=== PATIENT | male | born 1930 | race Caucasian/White ===

== ENCOUNTER 2018-09-20 11:19 | Outpatient (CLI) | payer MEDICARE, OTHER ==
[2018-09-20 18:14] LABS: INR 2.6 (0.8-1.2); PT - PROTHROMBIN TIME 28.8 secs (9.9-12.6)
== END 2018-09-20 11:20 | disposition home or self-care (01) ==
LOC: LAB.F 11:19
DX: Z51.81 Encounter for therapeutic drug level monitoring (principal); Z79.01 Long term (current) use of anticoagulants
CPT/HCPCS: 36415; 85610

== ENCOUNTER 2018-10-01 09:50 | Outpatient (CLI) | payer MEDICARE, OTHER ==
[2018-10-01 17:51] LABS: BASOPHILS % (AUTO) 0.3 %; EOSINOPHILS # (AUTO) 0.1 10^3/uL (0.0-0.7); EOSINOPHILS % (AUTO) 1.1 %; HGB - HEMOGLOBIN 10.8 g/dL (14.0-18.0); LYMPHOCYTES # (AUTO) 0.4 10^3/uL (1.5-3.5); LYMPHOCYTES % (AUTO) 4.2 %; MEAN CORPUSCULAR HEMOGLOBIN 32.5 pg (27.0-31.0); MEAN CORPUSCULAR HGB CONC 33.6 g/dL (32.0-36.0); MEAN CORPUSCULAR VOLUME 96.6 fL (80.0-94.0); MEAN PLATELET VOLUME 8.1 fL (7.4-11.4); MONOCYTES # (AUTO) 1.1 10^3/uL (0.0-1.0); MONOCYTES % (AUTO) 12.1 %; NEUTROPHILS # (AUTO) 7.2 10^3/uL (1.5-6.6); NEUTROPHILS % (AUTO) 82.3 %; PLT - PLATELET COUNT 229 10^3/uL (130-450); RED BLOOD COUNT 3.32 10^6/uL (4.70-6.10); RED CELL DISTRIBUTION WIDTH 14.7 % (12.0-15.0); WHITE BLOOD COUNT 8.7 x10^3/uL (4.8-10.8)
[2018-10-01 18:00] LABS: PT - PROTHROMBIN TIME 61.1 secs (9.9-12.6)
[2018-10-01 18:14] LABS: CREATININE,URINE 161.4 mg/dL; MICROALBUM/CREATININE RATIO,UR 11.8 ug/mg (<30.0); MICROALBUMIN,URINE 1.9 mg/dL (0-300.0)
[2018-10-01 18:23] LABS: % IRON SATURATION 7 % (20-50); ALBUMIN 3.9 g/dL (3.2-5.5); ALBUMIN/GLOBULIN RATIO 1.6 (1.0-2.2); ALKALINE PHOSPHATASE 90 IU/L (42-121); ALT ALANINE AMINOTRANSFERASE 17 IU/L (10-60); AST ASPARTATE AMINOTRANSFERASE 16 IU/L (10-42); BILIRUBIN,TOTAL 0.6 mg/dL (0.2-1.0); BUN - BLOOD UREA NITROGEN 45 mg/dL (6-20); CALCIUM 8.7 mg/dL (8.5-10.3); CARBON DIOXIDE - CO2 23 mmol/L (21-32); CHLORIDE 106 mmol/L (101-111); CHOL/HDL RATIO 2.9 (<5.0); CHOLESTEROL 122 mg/dL; CREATININE 1.3 mg/dL (0.6-1.2); FERRITIN 116.7 ng/mL (23.9-336.2); GFR - MDRD 52 (>89); GLUCOSE 160 mg/dL (70-100); HDL CHOLESTEROL 42 mg/dL; IRON 17 ug/dL (45-182); LDL CHOLESTEROL,CALCULATED 63 mg/dL; LDL/HDL RATIO 1.5 (<3.6); SODIUM 137 mmol/L (135-145); TOTAL IRON BINDING CAPACITY 248 ug/dL (250-450); TOTAL PROTEIN 6.3 g/dL (6.7-8.2); TRANSFERRIN 177 mg/dL (180-329); VLDL CHOLESTEROL 17 mg/dL
[2018-10-01 18:35] LABS: INR 5.5 (0.8-1.2)
[2018-10-01 18:48] LABS: HB2 TOTAL 10.9 g/dL; HEMOGLOBIN A1C 0.41 g/dL; HEMOGLOBIN A1C % 5.6 % (4.6-6.2)
== END 2018-10-01 09:51 | disposition home or self-care (01) ==
LOC: LAB.F 09:50
PROVIDERS: ATTEND Internal Medicine
DX: E11.9 Type 2 diabetes mellitus without complications (principal); E78.5 Hyperlipidemia, unspecified; F41.1 Generalized anxiety disorder; D50.9 Iron deficiency anemia, unspecified; Z79.01 Long term (current) use of anticoagulants; Z95.2 Presence of prosthetic heart valve
CPT/HCPCS: 36415; 80053; 80061; 82043; 82570; 82728; 83036; 83540; 83721; 84443; 84466; 85025; 85610

== ENCOUNTER 2018-10-02 08:20 | Outpatient (CLI) | payer MEDICARE, OTHER | END 2018-10-02 08:21 | disposition home or self-care (01) | LOC: LAB.F 08:20 | PROVIDERS: ATTEND General Practice | DX: Z79.01 Long term (current) use of anticoagulants (principal); Z95.2 Presence of prosthetic heart valve | CPT/HCPCS: 36415; 85610 ==

== ENCOUNTER 2018-10-07 10:21 | Outpatient (CLI) | payer MEDICARE, OTHER | END 2018-10-07 10:22 | disposition home or self-care (01) | LOC: LAB.F 10:21 | PROVIDERS: ATTEND General Practice | DX: Z51.81 Encounter for therapeutic drug level monitoring (principal); Z79.01 Long term (current) use of anticoagulants | CPT/HCPCS: 85610 ==

== ENCOUNTER 2018-10-09 09:22 | Outpatient (CLI) | payer MEDICARE, OTHER ==
[2018-10-09 18:25] LABS: INR 2.3 (0.8-1.2); PT - PROTHROMBIN TIME 25.9 secs (9.9-12.6)
[2018-10-09 18:40] LABS: % IRON SATURATION 11 % (20-50); IRON 21 ug/dL (45-182); TOTAL IRON BINDING CAPACITY 190 ug/dL (250-450); TRANSFERRIN 136 mg/dL (180-329)
[2018-10-09 19:58] LABS: ABSOLUTE RETICS # AUTO 0.033 10^6/uL (0.020-0.110); BASOPHILS % (AUTO) 0.4 %; EOSINOPHILS # (AUTO) 0.2 10^3/uL (0.0-0.7); EOSINOPHILS % (AUTO) 2.5 %; HGB - HEMOGLOBIN 8.5 g/dL (14.0-18.0); LYMPHOCYTES # (AUTO) 0.3 10^3/uL (1.5-3.5); LYMPHOCYTES % (AUTO) 3.7 %; MEAN CORPUSCULAR HEMOGLOBIN 31.6 pg (27.0-31.0); MEAN CORPUSCULAR VOLUME 95.8 fL (80.0-94.0); MEAN PLATELET VOLUME 7.2 fL (7.4-11.4); MEAN RETIC VALUE 112.7; MONOCYTES # (AUTO) 0.7 10^3/uL (0.0-1.0); NEUTROPHILS # (AUTO) 6.5 10^3/uL (1.5-6.6); NEUTROPHILS % (AUTO) 84.4 %; PLT - PLATELET COUNT 253 10^3/uL (130-450); RED BLOOD COUNT 2.69 10^6/uL (4.70-6.10); RED CELL DISTRIBUTION WIDTH 14.7 % (12.0-15.0); WHITE BLOOD COUNT 7.7 x10^3/uL (4.8-10.8)
== END 2018-10-09 09:23 | disposition home or self-care (01) ==
LOC: LAB.F 09:22
PROVIDERS: ATTEND General Practice
DX: Z51.81 Encounter for therapeutic drug level monitoring (principal); Z79.01 Long term (current) use of anticoagulants; D50.9 Iron deficiency anemia, unspecified; R06.02 Shortness of breath; R07.9 Chest pain, unspecified
CPT/HCPCS: 36415; 82728; 83540; 84466; 84484; 85025; 85044; 85379; 85610

== ENCOUNTER 2018-10-11 08:00 | Outpatient (CLI) | payer MEDICARE, OTHER | END 2018-10-11 22:59 | disposition home or self-care (01) | LOC: LAB.F 08:00 | PROVIDERS: ATTEND Internal Medicine | DX: Z51.81 Encounter for therapeutic drug level monitoring (principal); Z79.01 Long term (current) use of anticoagulants; Z95.2 Presence of prosthetic heart valve | CPT/HCPCS: 85610 ==

== ENCOUNTER 2018-11-01 11:04 | Outpatient (CLI) | payer MEDICARE, OTHER | END 2018-11-01 11:05 | disposition home or self-care (01) | LOC: LAB.F 11:04 | PROVIDERS: ATTEND Internal Medicine | DX: I48.1 Persistent atrial fibrillation (principal); Z79.01 Long term (current) use of anticoagulants | CPT/HCPCS: 85610 ==

== ENCOUNTER 2018-11-29 15:12 | Outpatient (CLI) | payer MEDICARE, OTHER | END 2018-11-29 15:13 | disposition home or self-care (01) | LOC: LAB.F 15:12 | PROVIDERS: ATTEND Internal Medicine | DX: I48.1 Persistent atrial fibrillation (principal); Z79.01 Long term (current) use of anticoagulants | CPT/HCPCS: 85610 ==

== ENCOUNTER 2018-12-05 13:12 | Outpatient (CLI) | payer MEDICARE, OTHER ==
[2018-12-05 17:26] LABS: HGB - HEMOGLOBIN 11.5 g/dL (14.0-18.0); MEAN CORPUSCULAR HEMOGLOBIN 30.2 pg (27.0-31.0); MEAN CORPUSCULAR HGB CONC 32.6 g/dL (32.0-36.0); MEAN CORPUSCULAR VOLUME 92.5 fL (80.0-94.0); MEAN PLATELET VOLUME 8.3 fL (7.4-11.4); RED BLOOD COUNT 3.81 10^6/uL (4.70-6.10); RED CELL DISTRIBUTION WIDTH 14.9 % (12.0-15.0); WHITE BLOOD COUNT 5.7 x10^3/uL (4.8-10.8)
== END 2018-12-05 13:13 | disposition home or self-care (01) ==
LOC: LAB.F 13:12
PROVIDERS: ATTEND Internal Medicine
DX: D50.9 Iron deficiency anemia, unspecified (principal); Z79.01 Long term (current) use of anticoagulants; I48.1 Persistent atrial fibrillation
CPT/HCPCS: 36415; 82728; 85027; 85610

== ENCOUNTER 2018-12-16 10:18 | Outpatient (CLI) | payer MEDICARE, OTHER | END 2018-12-16 10:19 | disposition home or self-care (01) | LOC: LAB.F 10:18 | PROVIDERS: ATTEND Internal Medicine | DX: I48.1 Persistent atrial fibrillation (principal); Z79.01 Long term (current) use of anticoagulants | CPT/HCPCS: 85610 ==

== ENCOUNTER 2018-12-23 15:07 | Outpatient (CLI) | payer MEDICARE, OTHER | END 2018-12-23 15:08 | disposition home or self-care (01) | LOC: LAB.F 15:07 | PROVIDERS: ATTEND Internal Medicine | DX: I48.1 Persistent atrial fibrillation (principal); Z79.01 Long term (current) use of anticoagulants | CPT/HCPCS: 85610 ==

== ENCOUNTER 2019-01-08 12:02 | Outpatient (CLI) | payer MEDICARE, OTHER ==
--- NOTE | 2019-01-10 06:33 | MRI Report ---
Reason: SPINAL STENOSIS,LUMBAR REGION WITH NEUROGENIC STALIN Procedure Date: 01/08/2019 Accession Number: [id number] / [id number] Procedure: MRI - Lumbar Spine W/O CPT Code: FULL RESULT: EXAM: MRI LUMBAR SPINE WITHOUT CONTRAST EXAM DATE: 01/08/2019 01:10 PM. CLINICAL HISTORY: Neurogenic claudication. COMPARISON: None. TECHNIQUE: Multiplanar, multisequence T1-weighted and fluid-sensitive sequences of the lumbar spine from T11 to S1 without contrast. Other: None. FINDINGS: Spinal Canal: The conus terminates at L1. The conus medullaris is unremarkable. Alignment: On coronal images, right lateral subluxation at L2-L3 measures 6 mm. Focal levoscoliosis is noted at L3-L4 due to right-sided disk height loss. Retrolisthesis at L2-L3 measures 2-3 mm. Grade 1 anterolisthesis at L4-L5 also measures 2-3 mm. The normal lumbar lordosis is straightened. Bone Marrow: Five [id number] lumbar vertebral bodies are assumed. Mixed type Modic endplate changes are present at L2-L3, L3-L4, and L4-L5. Disk Levels/Facets: T11-T12: On sagittal images, disk height loss is present without spinal canal or foraminal stenosis. T12-L1: Mild bilateral facet arthropathy is present without spinal canal or foraminal stenosis. L1-L2: A disk bulge with facet arthropathy and ligamentum flavum infolding result in moderate spinal canal stenosis. Fluid is present in the bilateral facet joints. There is moderate bilateral foraminal narrowing. L2-L3: A disk bulge with facet arthropathy and ligamentum flavum infolding result in moderate spinal canal stenosis. There is severe right and moderate left foraminal narrowing. L3-L4: A disk bulge with facet arthropathy and ligamentum flavum infolding result in mild spinal canal stenosis. There is severe right and moderate left foraminal narrowing. L4-L5: A disk bulge with facet arthropathy and ligamentum flavum infolding result in moderate spinal canal stenosis. There is severe bilateral foraminal narrowing. L5-S1: A disk bulge and bilateral facet arthropathy result in mild left foraminal narrowing. The spinal canal and right foramen are patent. Musculature: A moderate sized area of mixed signal abnormality is present in the left iliopsoas muscle measuring 7.0 x 2.8 cm (image 4, series 801), likely representing an intramuscular hematoma. A second small similar finding is seen anteriorly in the muscle measuring 1.4 cm (image 7, series 801). Other: There is moderate diffuse fatty atrophy of the posterior paraspinal muscles. Mild edema in the lower paraspinal muscles may be related to facet arthropathy. IMPRESSION: 1. Moderate to severe multilevel degenerative changes result in moderate spinal canal stenosis at L1-L2, L2-L3, and L4-L5. 2. There is severe right foraminal narrowing at L2-L3 and L3-L4. Severe bilateral foraminal narrowing is present at L4-L5. 3. Two areas of signal abnormality are noted in the left iliopsoas muscle measuring up to 7.0 cm, suspicious for intramuscular hematomas. Comment: The following findings are so common in adults without low back pain that while we report their presence, they must be interpreted with caution and in the context of the clinical situation. (Reference Anuvik et al, Spine 2001) Prevalence of findings in patients without low back pain: Disk degeneration (any evidence): 92% Disk desiccation/T2 signal loss: 83% Disk height loss: 56% Disk bulge: 64% Disk protrusion: 32% Annular tear/high intensity zone: 38% RADIA ADDENDUM: 01/10/19 21:59 The findings were relayed to Dr. Downs at 0942 hours on 01/10/2019.
== END 2019-01-08 12:03 | disposition home or self-care (01) ==
LOC: DI 12:02
PROVIDERS: ATTEND Orthopaedic Surgery
DX: M48.062 Spinal stenosis, lumbar region with neurogenic claudication (principal); M51.26 Other intervertebral disc displacement, lumbar region
CPT/HCPCS: 72148

== ENCOUNTER 2019-01-10 11:58 | Outpatient (CLI) | payer MEDICARE, OTHER ==
[2019-01-10 17:50] LABS: HGB - HEMOGLOBIN 8.1 g/dL (14.0-18.0); MEAN CORPUSCULAR HEMOGLOBIN 29.1 pg (27.0-31.0); MEAN CORPUSCULAR HGB CONC 30.1 g/dL (32.0-36.0); MEAN CORPUSCULAR VOLUME 96.8 fL (80.0-94.0); MEAN PLATELET VOLUME 9.9 fL (7.4-11.4); RED BLOOD COUNT 2.78 10^6/uL (4.70-6.10); RED CELL DISTRIBUTION WIDTH 13.9 % (12.0-15.0); WHITE BLOOD COUNT 8.2 x10^3/uL (4.8-10.8)
== END 2019-01-10 11:59 | disposition home or self-care (01) ==
LOC: LAB.S 11:58
PROVIDERS: ATTEND Internal Medicine
DX: I48.1 Persistent atrial fibrillation (principal); Z79.01 Long term (current) use of anticoagulants; D50.9 Iron deficiency anemia, unspecified
CPT/HCPCS: 36415; 82728; 85027; 85610

== ENCOUNTER 2019-01-10 16:19 | Emergency (ER) | payer MEDICARE, OTHER ==
[2019-01-10] MEDS ORDERED: PHYTONADIONE 10 MG/ML AMP PO ONE (16:49)
[2019-01-10] MEDS ORDERED: CHERRY SYRUP 10 ML UDC PO ONE (16:49)
--- NOTE | 2019-01-10 16:50 | ED Physician Documentation ---
History of Present Illness - Stated complaint Stated Complaint: INR RESULTS HIGH, MRI ABNORMAL - Chief complaint Chief Complaint: General - History obtained from History obtained from: Patient, Family - History of Present Illness Timing: Today (88-year-old gentleman with remote mechanical aortic valve. Has been having problems with his INR recently related to a hip injury, subsequently diagnosed with an iliopsoas hematoma and in there somewhere he took a few oxycodone. Today his INR was 8 and he was for further evaluation and treatment. Other than ongoing hip pain has no complaints. No melena or dark or tarry stools.) Review of Systems Constitutional: denies: Fever, Chills, Fatigue Cardiac: denies: Chest pain / pressure, Palpitations Respiratory: denies: Dyspnea, Cough GI: denies: Abdominal Pain PD PAST MEDICAL HISTORY - Past Medical History Cardiovascular: High cholesterol, Valve disorder, Other Endocrine/Autoimmune: Type 2 diabetes Psych: Depression, Anxiety - Past Surgical History Ortho: Hip replacement Cardiovascular: Other - Present Medications Home Medications: Ambulatory Orders Medication Instructions Recorded Confirmed ALPRAZolam [Alprazolam] 2 mg PO DAILY 11/13/18 11/13/18 Escitalopram Oxalate [Lexapro] 20 mg PO DAILY 11/13/18 11/13/18 Fexofenadine HCl [Nikki Allergy] 180 mg PO DAILY 11/13/18 11/13/18 Fluticasone 44 Mcg [Flovent] 2 puffs PO DAILY 11/13/18 11/13/18 Fluticasone [Flonase] 2 sprays JUAN DAILY 11/13/18 11/13/18 Memantine HCl [Namenda] 10 mg PO DAILY 11/13/18 11/13/18 Simvastatin 10 mg PO DAILY 11/13/18 11/13/18 Warfarin [Coumadin] 5 - 7.5 mg PO DAILY 11/13/18 11/13/18 Zolpidem Tartrate [Ambien] 10 mg PO DAILY 11/13/18 11/13/18 metFORMIN [Glucophage] 1,000 mg PO DAILY 11/13/18 11/13/18 quiNINE [Qualaquin] 300 mg PO DAILY 11/13/18 11/13/18 Oxycodone HCl/Acetaminophen 1 - 2 each PO Q6H PRN #14 tablet 01/10/19 [Percocet 5-325 mg Tablet] - Allergies Allergies/Adverse Reactions: Allergies Allergy/AdvReac Type Severity Reaction Status Date / Time Penicillins Allergy Unknown Verified 01/10/19 16:26 - Social History Smoking Status: Former smoker PD ED PE NORMAL - Vitals Vital signs reviewed: Yes - General General: Alert and oriented X 3, No acute distress - HEENT HEENT: PERRL, EOMI - Neuro Neuro: Alert and oriented X 3, Normal speech - Psych Psych: Normal mood, Normal affect Results - Vitals Vitals: Vital Signs - 24 hr 01/10/19 01/10/19 01/10/19 16:24 18:46 18:55 Temperature 36.0 C L 37.3 C 37.4 C Heart Rate 89 78 77 Respiratory 16 16 16 Rate Blood Pressure 172/57 H 134/60 H 138/70 H O2 Saturation 98 01/10/19 01/10/19 19:05 19:23 Temperature 37.5 C 37.3 C Heart Rate 77 80 Respiratory 16 16 Rate Blood Pressure 146/69 H 145/76 H O2 Saturation Oxygen O2 Source Room air - Labs Labs: Laboratory Tests 01/10/19 01/10/19 01/10/19 16:58 16:58 16:58 Hgb 8.5 L Hct 27.1 L PT 83.4 H INR 7.5 H* Whole Blood INR Blood Type Blood Type Recheck A NEGATIVE 01/10/19 01/10/19 17:30 20:00 Hgb Hct PT INR Whole Blood INR 4.3 H Blood Type A NEGATIVE Blood Type Recheck PD MEDICAL DECISION MAKING - ED course Complexity details: reviewed old records (MRI results from earlier this week and prior labs) ED course: 88-year-old gentleman with uncontrolled INR and slight drop in his H&H due to an iliopsoas hematoma. He was given a small dose of vitamin K and 1 unit of FFP here given the evidence of mild active bleeding and repeat INR was much better. Advised to stop Coumadin until Sunday and have his INR rechecked then. Departure - Departure Disposition: 01 Home, Self Care Clinical Impression: Supratherapeutic INR Iliopsoas muscle hematoma Qualifiers: Encounter type: initial encounter Laterality: left Qualified Code(s): S70.12XA - Contusion of left thigh, initial encounter Condition: Good Record reviewed to determine appropriate education?: Yes Health Concerns: pain, high inr Plan of Treatment: Hold Coumadin until Sunday, have your INR rechecked on Sunday prior to restarting it. Try to maintain in your goal range after that, due to the pain medication he may need a lower dose than previously. Return if worse. Do not drink or drive while taking narcotic pain medication. Note that many narcotic pain relievers also contain Tylenol/acetaminophen. Please ensure that your total dose of acetaminophen from all sources does not exceed 3 g (3000 mg) per day. You may get constipated while on this medication. Take a stool softener such as Colace twice a day while you are on it. Also add an eott-sij-gvldgfj laxative such as senna or MiraLAX on any day that you do not have a bowel movement. If you received a narcotic pain medication or sedative while in the emergency department, do not drive for the next 24 hours. Care Goals: pain control, Assessment: as above Prescriptions: Oxycodone HCl/Acetaminophen [Percocet 5-325 mg Tablet] 1 - 2 each PO Q6H PRN #14 tablet PRN Reason: pain Comments: Hold Coumadin until Sunday, have your INR rechecked on Sunday prior to restarting it. Try to maintain in your goal range after that, due to the pain medication he may need a lower dose than previously. Return if worse. Do not drink or drive while taking narcotic pain medication. Note that many narcotic pain relievers also contain Tylenol/acetaminophen. Please ensure that your total dose of acetaminophen from all sources does not exceed 3 g (3000 mg) per day. You may get constipated while on this medication. Take a stool softener such as Colace twice a day while you are on it. Also add an kypy-llb-jydjkez laxative such as senna or MiraLAX on any day that you do not have a bowel movement. If you received a narcotic pain medication or sedative while in the emergency department, do not drive for the next 24 hours.
[2019-01-10 17:03] LABS: HGB - HEMOGLOBIN 8.5 g/dL (14.0-18.0)
[2019-01-10] MEDS ORDERED: oxyCODONE 5 MG TABLET PO STA (17:10)
[2019-01-10 17:17] LABS: PT - PROTHROMBIN TIME 83.4 secs (9.9-12.6)
[2019-01-10 17:31] LABS: INR 7.5 (0.8-1.2)
[2019-01-10] MEDS ORDERED: oxyCODONE/ACET 5/325 Prepack 4 PO STA (20:07)
[2019-01-10 20:26] VITALS: BP 149/74
== END 2019-01-10 20:23 | disposition home or self-care (01) ==
LOC: ED 16:19
DX: R79.1 Abnormal coagulation profile (principal); S70.12XA Contusion of left thigh, initial encounter; X58.XXXA Exposure to other specified factors, initial encounter; I48.91 Unspecified atrial fibrillation; Z95.2 Presence of prosthetic heart valve; Z79.01 Long term (current) use of anticoagulants; D50.9 Iron deficiency anemia, unspecified; E11.9 Type 2 diabetes mellitus without complications; Z79.84 Long term (current) use of oral hypoglycemic drugs; Z87.891 Personal history of nicotine dependence
CPT/HCPCS: 36415; 36430; 82728; 85014; 85018; 85027; 85610; 86900; 86901; 99283; A9270; P9017

== ENCOUNTER 2019-01-13 10:30 | Outpatient (CLI) | payer MEDICARE, OTHER | END 2019-01-13 10:31 | disposition home or self-care (01) | LOC: LAB.S 10:30 | PROVIDERS: ATTEND Internal Medicine | DX: I48.1 Persistent atrial fibrillation (principal); Z79.01 Long term (current) use of anticoagulants | CPT/HCPCS: 85610 ==

== ENCOUNTER 2019-01-16 10:04 | Outpatient (CLI) | payer MEDICARE, OTHER | END 2019-01-16 10:05 | disposition home or self-care (01) | LOC: LAB.S 10:04 | PROVIDERS: ATTEND Internal Medicine | DX: I48.1 Persistent atrial fibrillation (principal); Z79.01 Long term (current) use of anticoagulants | CPT/HCPCS: 85610 ==

== ENCOUNTER 2019-01-22 11:07 | Outpatient (CLI) | payer MEDICARE, OTHER | END 2019-01-22 11:08 | disposition home or self-care (01) | LOC: LAB.S 11:07 | PROVIDERS: ATTEND Internal Medicine | DX: I48.1 Persistent atrial fibrillation (principal); Z79.01 Long term (current) use of anticoagulants | CPT/HCPCS: 85610 ==

== ENCOUNTER 2019-01-29 12:42 | Outpatient (CLI) | payer MEDICARE, OTHER | END 2019-01-29 12:43 | disposition home or self-care (01) | LOC: LAB.S 12:42 | PROVIDERS: ATTEND Internal Medicine | DX: I48.1 Persistent atrial fibrillation (principal); Z79.01 Long term (current) use of anticoagulants | CPT/HCPCS: 85610 ==

== ENCOUNTER 2019-02-10 | Outpatient (CLI) | payer MEDICARE, OTHER | END 2019-02-10 15:43 | disposition home or self-care (01) ==

== ENCOUNTER 2019-03-03 14:58 | Outpatient (CLI) | payer MEDICARE, OTHER | END 2019-03-03 14:59 | disposition home or self-care (01) | LOC: LAB.S 14:58 | PROVIDERS: ATTEND Internal Medicine | DX: I48.1 Persistent atrial fibrillation (principal); Z79.01 Long term (current) use of anticoagulants | CPT/HCPCS: 85610 ==

== ENCOUNTER 2019-03-11 15:17 | Outpatient (CLI) | payer MEDICARE, OTHER | END 2019-03-11 15:18 | disposition home or self-care (01) | LOC: LAB.S 15:17 | PROVIDERS: ATTEND Internal Medicine | DX: I48.1 Persistent atrial fibrillation (principal); Z79.01 Long term (current) use of anticoagulants | CPT/HCPCS: 85610 ==

== ENCOUNTER 2019-03-17 11:34 | Outpatient (CLI) | payer MEDICARE, OTHER | END 2019-03-17 11:35 | disposition home or self-care (01) | LOC: LAB.S 11:34 | PROVIDERS: ATTEND Internal Medicine | DX: I48.1 Persistent atrial fibrillation (principal); Z79.01 Long term (current) use of anticoagulants | CPT/HCPCS: 85610 ==

== ENCOUNTER 2019-03-24 14:33 | Outpatient (CLI) | payer MEDICARE, OTHER | END 2019-03-24 14:34 | disposition home or self-care (01) | LOC: LAB.S 14:33 | PROVIDERS: ATTEND Internal Medicine | DX: I48.1 Persistent atrial fibrillation (principal); Z79.01 Long term (current) use of anticoagulants | CPT/HCPCS: 85610 ==

== ENCOUNTER 2019-04-03 08:16 | Outpatient (CLI) | payer MEDICARE, OTHER | END 2019-04-03 08:17 | disposition home or self-care (01) | LOC: LAB.S 08:16 | PROVIDERS: ATTEND Internal Medicine | DX: I48.1 Persistent atrial fibrillation (principal); Z79.01 Long term (current) use of anticoagulants | CPT/HCPCS: 85610 ==

== ENCOUNTER 2019-04-03 15:04 | Outpatient (CLI) | payer MEDICARE, OTHER ==
[2019-04-03 17:11] LABS: BASOPHILS # (AUTO) 0.1 10^3/uL (0.0-0.1); BASOPHILS % (AUTO) 0.8 %; EOSINOPHILS # (AUTO) 0.3 10^3/uL (0.0-0.7); EOSINOPHILS % (AUTO) 4.5 %; HGB - HEMOGLOBIN 11.9 g/dL (14.0-18.0); LYMPHOCYTES # (AUTO) 0.6 10^3/uL (1.5-3.5); LYMPHOCYTES % (AUTO) 7.5 %; MEAN CORPUSCULAR HEMOGLOBIN 28.1 pg (27.0-31.0); MEAN CORPUSCULAR HGB CONC 30.8 g/dL (32.0-36.0); MEAN PLATELET VOLUME 10.9 fL (7.4-11.4); MONOCYTES # (AUTO) 0.7 10^3/uL (0.0-1.0); MONOCYTES % (AUTO) 9.9 %; NEUTROPHILS # (AUTO) 5.7 10^3/uL (1.5-6.6); NEUTROPHILS % (AUTO) 76.9 %; PLT - PLATELET COUNT 244 10^3/uL (130-450); RED BLOOD COUNT 4.24 10^6/uL (4.70-6.10); RED CELL DISTRIBUTION WIDTH 15.3 % (12.0-15.0); WHITE BLOOD COUNT 7.4 x10^3/uL (4.8-10.8)
[2019-04-03 17:25] LABS: ALBUMIN 4.4 g/dL (3.2-5.5); ALBUMIN/GLOBULIN RATIO 1.7 (1.0-2.2); BILIRUBIN,TOTAL 0.8 mg/dL (0.2-1.0); CALCIUM 9.1 mg/dL (8.5-10.3); CREATININE 1.3 mg/dL (0.6-1.2)
== END 2019-04-03 15:05 | disposition home or self-care (01) ==
LOC: LAB.S 15:04
PROVIDERS: ATTEND Internal Medicine
DX: R10.10 Upper abdominal pain, unspecified (principal); I48.91 Unspecified atrial fibrillation; Z79.01 Long term (current) use of anticoagulants
CPT/HCPCS: 36415; 80053; 82150; 83690; 85025; 85610

== ENCOUNTER 2019-04-08 13:10 | Outpatient (CLI) | payer MEDICARE, OTHER | END 2019-04-08 13:11 | disposition home or self-care (01) | LOC: LAB.S 13:10 | PROVIDERS: ATTEND Internal Medicine | DX: Z95.2 Presence of prosthetic heart valve (principal); Z79.01 Long term (current) use of anticoagulants | CPT/HCPCS: 85610 ==

== ENCOUNTER 2019-04-14 15:24 | Outpatient (CLI) | payer MEDICARE, OTHER | END 2019-04-14 15:25 | disposition home or self-care (01) | LOC: LAB.S 15:24 | PROVIDERS: ATTEND Internal Medicine | DX: Z95.2 Presence of prosthetic heart valve (principal); Z79.01 Long term (current) use of anticoagulants | CPT/HCPCS: 85610 ==

== ENCOUNTER 2019-04-21 12:00 | Outpatient (CLI) | payer MEDICARE, OTHER | END 2019-04-21 12:01 | disposition home or self-care (01) | LOC: LAB.S 12:00 | PROVIDERS: ATTEND Internal Medicine | DX: Z95.2 Presence of prosthetic heart valve (principal); Z79.01 Long term (current) use of anticoagulants | CPT/HCPCS: 85610 ==

== ENCOUNTER 2019-04-22 11:38 | Outpatient (CLI) | payer MEDICARE, OTHER ==
[2019-04-22 18:12] LABS: HB2 TOTAL 10.3 g/dL; HEMOGLOBIN A1C 0.4 g/dL; HEMOGLOBIN A1C % 5.7 % (4.6-6.2)
== END 2019-04-22 11:39 | disposition home or self-care (01) ==
LOC: LAB.S 11:38
PROVIDERS: ATTEND Internal Medicine
DX: E11.9 Type 2 diabetes mellitus without complications (principal)
CPT/HCPCS: 36415; 83036

== ENCOUNTER 2019-05-01 15:10 | Outpatient (CLI) | payer MEDICARE, OTHER | END 2019-05-01 15:11 | disposition home or self-care (01) | LOC: LAB.S 15:10 | PROVIDERS: ATTEND Internal Medicine | DX: Z95.2 Presence of prosthetic heart valve (principal); Z79.01 Long term (current) use of anticoagulants | CPT/HCPCS: 85610 ==

== ENCOUNTER 2019-05-08 14:43 | Outpatient (CLI) | payer MEDICARE, OTHER | END 2019-05-08 14:44 | disposition home or self-care (01) | LOC: LAB.S 14:43 | PROVIDERS: ATTEND Internal Medicine | DX: Z95.2 Presence of prosthetic heart valve (principal); Z79.01 Long term (current) use of anticoagulants | CPT/HCPCS: 85610 ==

== ENCOUNTER 2019-05-14 08:56 | Outpatient (CLI) | payer MEDICARE, OTHER | END 2019-05-14 08:57 | disposition home or self-care (01) | LOC: LAB.S 08:56 | PROVIDERS: ATTEND Internal Medicine | DX: Z95.2 Presence of prosthetic heart valve (principal); Z79.01 Long term (current) use of anticoagulants | CPT/HCPCS: 85610 ==

== ENCOUNTER 2019-05-15 11:36 | Emergency (ER) | payer MEDICARE, OTHER ==
[2019-05-15] MEDS ORDERED: HYDROmorphone 1 MG/ML CARPUJECT IVP STA (12:42)
--- NOTE | 2019-05-15 12:45 | ED Physician Documentation ---
History of Present Illness - Stated complaint Stated Complaint: LEFT HIP/GROIN PX SWOLLEN - Chief complaint Chief Complaint: Ext Problem - History obtained from History obtained from: Patient - History of Present Illness Timing: Other (89-year-old gentleman on warfarin for remote history of aortic valve replacement. He also has a history of a left hip replacement. 2 days ago he was riding an exercise bike and did fine during that, but got home and developed a severe sudden pain in the left inguinal region with a sensation of swelling and pain going down into the left thigh. He has chronic issues with sciatica there. Also of note a couple of months ago he had supratherapeutic INR and had an iliopsoas hematoma. He tried some Percocet he left had leftover from that episode which was ineffective for this pain. He denies any fevers, chills, problems with bowel or bladder function.) Review of Systems Ten Systems: 10 systems reviewed and negative Constitutional: denies: Fever, Chills Cardiac: denies: Chest pain / pressure, Palpitations Respiratory: denies: Dyspnea, Cough GI: denies: Nausea, Vomiting, Diarrhea PD PAST MEDICAL HISTORY - Past Medical History Past Medical History: Yes Cardiovascular: High cholesterol, Valve disorder, Other Endocrine/Autoimmune: Type 2 diabetes Psych: Depression, Anxiety - Past Surgical History Past Surgical History: Yes Ortho: Hip replacement Cardiovascular: Other Derm: Skin cancer surgery - Present Medications Home Medications: Ambulatory Orders Medication Instructions Recorded Confirmed ALPRAZolam [Alprazolam] 2 mg PO DAILY 11/13/18 11/13/18 Escitalopram Oxalate [Lexapro] 20 mg PO DAILY 11/13/18 11/13/18 Fexofenadine HCl [Nikki Allergy] 180 mg PO DAILY 11/13/18 11/13/18 Fluticasone 44 Mcg [Flovent] 2 puffs PO DAILY 11/13/18 11/13/18 Fluticasone [Flonase] 2 sprays JUAN DAILY 11/13/18 11/13/18 Memantine HCl [Namenda] 10 mg PO DAILY 11/13/18 11/13/18 Simvastatin 10 mg PO DAILY 11/13/18 11/13/18 Warfarin [Coumadin] 5 - 7.5 mg PO DAILY 11/13/18 11/13/18 Zolpidem Tartrate [Ambien] 10 mg PO DAILY 11/13/18 11/13/18 metFORMIN [Glucophage] 1,000 mg PO DAILY 11/13/18 11/13/18 quiNINE [Qualaquin] 300 mg PO DAILY 11/13/18 11/13/18 Oxycodone HCl/Acetaminophen 1 - 2 each PO Q6H PRN #14 tablet 01/10/19 [Percocet 5-325 mg Tablet] Oxycodone HCl/Acetaminophen 1 each PO Q6HR PRN #15 tablet 05/15/19 [Percocet 10-325 mg Tablet] - Allergies Allergies/Adverse Reactions: Allergies Allergy/AdvReac Type Severity Reaction Status Date / Time Penicillins Allergy Unknown Verified 01/10/19 16:26 - Social History Does the pt smoke?: No Smoking Status: Never smoker Does the pt drink ETOH?: No Does the pt have substance abuse?: No - Immunizations Immunizations are current?: Yes - POLST Patient has POLST: No PD ED PE NORMAL - Vitals Vital signs reviewed: Yes - General General: Alert and oriented X 3, No acute distress - Abdomen Abdomen: Soft, Non tender, Other (There is no abdominal tenderness, I do not feel an obvious inguinal hernia despite his complaints of swelling there.) - Back Back: No CVA TTP, No spinal TTP - Extremities Extremities: Other (He has diminished and almost absent sensation on the left thigh, also really no reflex in the left patella. He is a little weak in foot extension on the left. Not in flexion.) - Neuro Neuro: Alert and oriented X 3, Normal speech - Psych Psych: Normal mood, Normal affect Results - Vitals Vitals: Vital Signs - 24 hr 05/15/19 05/15/19 11:45 12:28 Temperature 36.8 C Heart Rate 92 88 Respiratory 16 14 Rate Blood Pressure 132/45 H 138/40 H O2 Saturation 100 100 Oxygen O2 Source Room air - Labs Labs: Laboratory Tests 05/15/19 05/15/19 05/15/19 13:00 13:00 13:00 WBC 11.7 H RBC 3.12 L Hgb 8.6 L Hct 28.4 L MCV 91.0 MCH 27.6 MCHC 30.3 L RDW 14.8 Plt Count 217 MPV 9.5 Neut # (Auto) 10.3 H Lymph # (Auto) 0.3 L [place] # (Auto) 1.0 Eos # (Auto) 0.1 Baso # (Auto) 0.0 Absolute Nucleated RBC 0.00 Nucleated RBC % 0.0 PT 29.3 H INR 2.7 H Sodium 135 Potassium 4.7 Chloride 102 Carbon Dioxide 25 Anion Gap 8.0 BUN 36 H Creatinine 1.2 Estimated GFR (MDRD) 57 L Glucose 187 H Calcium 9.0 Total Bilirubin 0.9 AST 27 ALT 13 Alkaline Phosphatase 69 Total Protein 6.7 Albumin 4.0 Globulin 2.7 Albumin/Globulin Ratio 1.5 Lipase 26 - Rads (name of study) CT A/P Radiology: EMP read contemporaneously (Evolution and slight increased of left so asked and iliac muscle hematoma. 1.9 cm pancreatic head mass.) PD MEDICAL DECISION MAKING - ED course ED course: 89-year-old gentleman presents with pain, it is due to an increasingly sized iliopsoas hematoma. I discussed the case with Dr. Hickman, he did not feel that it would be improved by IR guided drainage. Patient was comfortable after a milligram of Dilaudid here. Also found was a potential pancreatic head mass. 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 Bashir in [place] who will follow up with him on Sunday. Departure - Departure Disposition: 01 Home, Self Care Clinical Impression: Iliopsoas muscle hematoma Qualifiers: Encounter type: initial encounter Laterality: left Qualified Code(s): S70.12XA - Contusion of left thigh, initial encounter Condition: Good Record reviewed to determine appropriate education?: Yes Prescriptions: Oxycodone HCl/Acetaminophen [Percocet 10-325 mg Tablet] 1 each PO Q6HR PRN #15 tablet PRN Reason: Pain Comments: As discussed, the cause of your pain today is an increasing amount of blood in the iliopsoas muscle on the left. [place] at your INR is go too high, have been checked frequently. Follow-up with Dr. Ivey on Sunday regarding the potential pancreatic mass. Return for new worsening symptoms. On any day that you do not have a bowel movements, you can start with a dose of ex lax, 1 hour later if you do not have a bowel movement take milk of magnesia, and hour later if you do not have a bowel movement take MiraLAX, drink plenty of fluids.
[2019-05-15 13:15] LABS: BASOPHILS % (AUTO) 0.3 %; EOSINOPHILS # (AUTO) 0.1 10^3/uL (0.0-0.7); EOSINOPHILS % (AUTO) 0.4 %; HGB - HEMOGLOBIN 8.6 g/dL (14.0-18.0); LYMPHOCYTES # (AUTO) 0.3 10^3/uL (1.5-3.5); LYMPHOCYTES % (AUTO) 2.2 %; MEAN CORPUSCULAR HEMOGLOBIN 27.6 pg (27.0-31.0); MEAN CORPUSCULAR HGB CONC 30.3 g/dL (32.0-36.0); MEAN PLATELET VOLUME 9.5 fL (7.4-11.4); MONOCYTES % (AUTO) 8.4 %; NEUTROPHILS # (AUTO) 10.3 10^3/uL (1.5-6.6); NEUTROPHILS % (AUTO) 88.1 %; PLT - PLATELET COUNT 217 10^3/uL (130-450); RED BLOOD COUNT 3.12 10^6/uL (4.70-6.10); RED CELL DISTRIBUTION WIDTH 14.8 % (12.0-15.0); WHITE BLOOD COUNT 11.7 x10^3/uL (4.8-10.8)
[2019-05-15 13:30] LABS: INR 2.7 (0.8-1.2); PT - PROTHROMBIN TIME 29.3 secs (9.9-12.6)
[2019-05-15 13:31] LABS: ALBUMIN/GLOBULIN RATIO 1.5 (1.0-2.2); BILIRUBIN,TOTAL 0.9 mg/dL (0.2-1.0); CREATININE 1.2 mg/dL (0.6-1.2); TOTAL PROTEIN 6.7 g/dL (6.7-8.2)
[2019-05-15] MEDS ORDERED: IOVERSOL 320 100 ML VIAL IVP ONE ×2 (13:43→16:14)
--- NOTE | 2019-05-15 14:45 | CT Report ---
Reason: IV only, LLQ pain Procedure Date: 05/15/2019 Accession Number: [id number] / [id number] Procedure: CT - Abdomen/Pelvis W CPT Code: Final Report FULL RESULT: EXAM: CT ABDOMEN AND PELVIS EXAM DATE: 05/15/2019 01:57 PM. CLINICAL HISTORY: Left lower quadrant pain. COMPARISONS: LUMBAR SPINE W/O 01/08/2019 12:49 PM. TECHNIQUE: Routine helical CT imaging was performed through the abdomen and pelvis. IV contrast: 90 cc of Optiray 320. Enteric contrast: No. Reconstructions: Coronal and sagittal. In accordance with CT protocol optimization, one or more of the following dose reduction techniques were utilized for this exam: automated exposure control, adjustment of mA and/or KV based on patient size, or use of iterative reconstructive technique. FINDINGS: Lung Bases: Bibasilar scar/atelectasis. Changes are seen from median sternotomy and aorta valve replacement. Coronary artery calcified plaque. Descending thoracic to calcified and noncalcified plaque. Liver: Normal. No masses. Gallbladder/Bile Ducts: Unremarkable. Spleen: Normal. Pancreas: Pancreatic brain volume loss. Within the inferior pancreatic head/uncinate process is a heterogeneous low-attenuation 1.8 x 1.5 x 1.1 cm lesion with surrounding stranding and edema and/ or adjacent infiltration along the margins of the superior mesenteric vein, hepatic artery and SMA. No pancreatic ductal or biliary ductal dilatation. Adrenal Glands: Unremarkable. Kidneys: Kidneys enhance symmetrically. Bilateral renal cysts are seen largely in the upper pole left kidney measuring 3.6 cm. No hydronephrosis. Peritoneal Cavity/Bowel: Stomach is mildly distended. Mild fluid and gaseous distention of small bowel. No bowel wall thickening. No bowel obstruction. Moderate volume of stool in the colon. Diverticula are seen largely in the distal colon. No diverticulitis. Numerous prominent mesenteric and retroperitoneal lymph nodes are seen the largest posterior to the distal abdominal aorta measuring 1.3 cm and 1 cm in short axis dimension with numerous aortocaval and periaortic lymph nodes slightly more cephalad as well as subcentimeter maritza hepatis lymph nodes also present.The appendix is well visualized and normal. Pelvic Organs: Urinary bladder is mildly distended and unremarkable. Portions of the urinary bladder are obscured by artifact created by the hip arthroplasties. Prostate gland and seminal vesicles are obscured. Fatty left inguinal hernia. Vasculature: Vascular calcifications are extensively seen. SMA, celiac and BEATRICE are patent. No dissection. No occlusion. Bones: Degenerative changes of the lower thoracic and lumbar spine. Lumbar levoscoliosis. No acute osseous abnormalities. Bilateral hip arthroplasty is noted. Other: There is evolution and increase in size of the left psoas intramuscular 5.4 x 3.4 x 10 cm hematoma with some areas of central high density likely subacute. There mild some surrounding edema. In addition, there is a diffuse enlargement of the left iliacus muscle with mildly heterogeneous, largely low-density collection. There are some areas of slight increase in density in this collection. Overall size is approximately 7 x 6 x 13 cm with the areas of high density likely due to subacute hematoma. There is also mild surrounding edema. IMPRESSION: 1. Evolution and slight increase in size of left psoas and left iliacus muscle enlargement and hematoma with some areas of central high density likely due to evolving subacute hematoma compared to the MRI from 01/08/2019. Adjacent retroperitoneal edema is noted. 2. Colonic diverticulosis. No diverticulitis. Moderate volume of stool in the colon. No bowel obstruction. 3. Normal appendix. 4. 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 No biliary dilatation RAD[facility] The call report notification system was initiated by Dr. Devendra Mclain at 02:34 PM on 05/15/2019. The above call report findings were discussed with Richie Gorman by Dr. Devendra Mclain at 02:43 PM on 05/15/2019.
[2019-05-15 17:07] VITALS: BP 143/55
== END 2019-05-15 17:08 | disposition home or self-care (01) ==
LOC: ED 11:36
DX: S70.12XA Contusion of left thigh, initial encounter (principal); X58.XXXA Exposure to other specified factors, initial encounter; E11.9 Type 2 diabetes mellitus without complications; Z79.84 Long term (current) use of oral hypoglycemic drugs
CPT/HCPCS: 36415; 74177; 80053; 83690; 85025; 85610; 96374; 99284; J1170; Q9967

== ENCOUNTER 2019-05-22 13:27 | Outpatient (CLI) | payer MEDICARE, OTHER | END 2019-05-22 13:28 | disposition home or self-care (01) | LOC: LAB.S 13:27 | PROVIDERS: ATTEND Internal Medicine | DX: Z95.2 Presence of prosthetic heart valve (principal); Z79.01 Long term (current) use of anticoagulants | CPT/HCPCS: 85610 ==

== ENCOUNTER 2019-05-28 14:52 | Outpatient (CLI) | payer MEDICARE, OTHER | END 2019-05-28 23:59 | disposition home or self-care (01) | LOC: LAB.S 14:52 | PROVIDERS: ATTEND Internal Medicine | DX: Z95.2 Presence of prosthetic heart valve (principal); Z79.01 Long term (current) use of anticoagulants | CPT/HCPCS: 85610 ==

== ENCOUNTER 2019-06-03 13:52 | Outpatient (CLI) | payer MEDICARE, OTHER | END 2019-06-03 13:53 | disposition home or self-care (01) | LOC: LAB.S 13:52 | PROVIDERS: ATTEND Internal Medicine | DX: Z95.2 Presence of prosthetic heart valve (principal); Z79.01 Long term (current) use of anticoagulants | CPT/HCPCS: 85610 ==

== ENCOUNTER 2019-06-09 12:00 | Outpatient (CLI) | payer MEDICARE, OTHER ==
[2019-06-09 17:56] LABS: BASOPHILS # (AUTO) 0.1 10^3/uL (0.0-0.1); BASOPHILS % (AUTO) 0.7 %; EOSINOPHILS # (AUTO) 0.2 10^3/uL (0.0-0.7); EOSINOPHILS % (AUTO) 2.4 %; LYMPHOCYTES # (AUTO) 0.4 10^3/uL (1.5-3.5); LYMPHOCYTES % (AUTO) 4.2 %; MEAN CORPUSCULAR HEMOGLOBIN 27.3 pg (27.0-31.0); MEAN CORPUSCULAR HGB CONC 30.3 g/dL (32.0-36.0); MEAN CORPUSCULAR VOLUME 90.2 fL (80.0-94.0); MEAN PLATELET VOLUME 10.5 fL (7.4-11.4); MONOCYTES # (AUTO) 0.7 10^3/uL (0.0-1.0); MONOCYTES % (AUTO) 8.6 %; NEUTROPHILS % (AUTO) 83.7 %; PLT - PLATELET COUNT 375 10^3/uL (130-450); RED BLOOD COUNT 3.66 10^6/uL (4.70-6.10); RED CELL DISTRIBUTION WIDTH 14.5 % (12.0-15.0); WHITE BLOOD COUNT 8.3 x10^3/uL (4.8-10.8)
[2019-06-09 18:08] LABS: INR 2.5 (0.8-1.2); PT - PROTHROMBIN TIME 26.7 secs (9.9-12.6)
[2019-06-09 18:33] LABS: % IRON SATURATION 14 % (20-50); IRON 44 ug/dL (45-182); TOTAL IRON BINDING CAPACITY 322 ug/dL (250-450); TRANSFERRIN 230 mg/dL (180-329)
== END 2019-06-09 12:01 | disposition home or self-care (01) ==
LOC: LAB.S 12:00
PROVIDERS: ATTEND Internal Medicine
DX: Z95.2 Presence of prosthetic heart valve (principal); Z79.01 Long term (current) use of anticoagulants; D50.9 Iron deficiency anemia, unspecified
CPT/HCPCS: 36415; 82728; 83540; 84466; 85025; 85610

== ENCOUNTER 2019-06-11 14:51 | Outpatient (CLI) | payer MEDICARE, OTHER ==
[2019-06-11] MEDS ORDERED: IOVERSOL 320 50 ML VIAL ONE (14:55)
[2019-06-11] MEDS ORDERED: IOVERSOL 320 100 ML VIAL IVP ONE ×2 (14:56→16:45)
--- NOTE | 2019-06-11 16:36 | CT Report ---
Reason: GENERALIZED ABDOMINAL PAIN, OTHER ASCITES Procedure Date: 06/11/2019 Accession Number: [id number] / [id number] Procedure: CT - Abdomen/Pelvis W CPT Code: Addended Final Report FULL RESULT: EXAM: CT ABDOMEN AND PELVIS EXAM DATE: 06/11/2019 03:29 PM. CLINICAL HISTORY: Generalized abdominal pain, other ascites. COMPARISONS: ABDOMEN/PELVIS W/ 05/15/2019 1:46 PM. TECHNIQUE: Routine helical CT imaging was performed through the abdomen and pelvis. IV contrast: 90 mL of Optiray 320.. Enteric contrast: No. Reconstructions: Coronal and sagittal. In accordance with CT protocol optimization, one or more of the following dose reduction techniques were utilized for this exam: automated exposure control, adjustment of mA and/or KV based on patient size, or use of iterative reconstructive technique. FINDINGS: Lung Bases: Redemonstration of the 9 mm nodule in the right lower lobe (series 4 image 9). No other nodules or suspicious masses. Heart size within normal limits. Extensive atherosclerotic coronary calcifications. Prosthetic mitral valve. Liver: Normal. No masses. Gallbladder/Bile Ducts: Unremarkable. Spleen: Normal. Pancreas: Redemonstration of the low-attenuation lesion in the region of the pancreatic head/uncinate process, which measures up to 1.9 cm in diameter and associated with surrounding fat stranding concerning for pancreatic neoplasm. Adrenal Glands: Normal. Kidneys: Simple right renal cyst measures 2.5 x 2 cm in the axial plane arising from the lateral aspect of the right kidney. Simple cyst arising from the upper pole of the left kidney measures 4 cm in diameter. No hydronephrosis or nephrolithiasis. Normal course and caliber of both ureters without evidence of stones. Peritoneal Cavity/Bowel: Normal caliber of the small bowel without evidence of obstruction. No focal bowel wall thickening or inflammation. Appendix: The appendix is well visualized and normal. Retroperitoneum: Interval significant decrease in the size of the left psoas muscle, the left iliacus muscle, intramuscular hematomas with interval decrease in the central density of both hematomas associate with surrounding high density. Pelvic Organs: Urinary bladder and prostate gland not well visualized due to beam hardening artifact. Vasculature: No aneurysms or other significant abnormality. Bones: No significant abnormality. Other: None. IMPRESSION: 1. Interval significant decrease in the size of the left psoas muscle, the left iliacus muscle, intramuscular hematomas with interval decrease in the central density of both hematomas associate with surrounding high density. Superimposed infection and development of abscesses cannot be completely excluded. Close clinical follow-up recommended and possible short-term CT follow-up could be considered. 2. Redemonstration of the low-attenuation lesion in the region of the pancreatic head/uncinate process, which measures up to 1.9 cm in diameter and associated with surrounding fat stranding concerning for pancreatic neoplasm. 3. Redemonstration of the 9 mm nodule in the right lower lobe (series 4 image 9). Given aforementioned pancreatic finding, metastatic lesion cannot be completely excluded. RADIA The call report notification system was initiated by Dr. Haresh Drummond at 04:19 PM on 06/11/2019. ADDENDUM: 06/11/19 16:[address] Ivey at 4:51 PM on 06/11/2019. ADDENDUM: 06/11/19 16:54 Upon further review, the Agile capsule is located within the mid transverse colon.
== END 2019-06-11 14:52 | disposition home or self-care (01) ==
LOC: DI 14:51
PROVIDERS: ATTEND Internal Medicine
DX: K86.9 Disease of pancreas, unspecified (principal); S36.892A Contusion of other intra-abdominal organs, initial encounter; R91.1 Solitary pulmonary nodule
CPT/HCPCS: 74177; Q9967

== ENCOUNTER 2019-06-18 14:13 | Outpatient (CLI) | payer MEDICARE, OTHER ==
[2019-06-18 19:22] LABS: HB2 TOTAL 11.5 g/dL; HEMOGLOBIN A1C 0.5 g/dL; HEMOGLOBIN A1C % 6.1 % (4.6-6.2)
== END 2019-06-18 14:14 | disposition home or self-care (01) ==
LOC: LAB.S 14:13
PROVIDERS: ATTEND Internal Medicine
DX: Z79.01 Long term (current) use of anticoagulants (principal); Z95.2 Presence of prosthetic heart valve; E11.9 Type 2 diabetes mellitus without complications
CPT/HCPCS: 36415; 83036; 85610

== ENCOUNTER 2019-06-25 12:26 | Outpatient (CLI) | payer MEDICARE, OTHER ==
--- NOTE | 2019-06-27 15:24 | Ultrasound Report ---
Reason: ABDOMINAL PAIN, INTRAABDOMINAL FLUID COLLECTION Procedure Date: 06/25/2019 Accession Number: [id number] / [id number] Procedure: US - Arterial Visceral Complete CPT Code: Final Report FULL RESULT: EXAM: MESENTERIC/CELIAC ARTERY DOPPLER ULTRASOUND CLINICAL HISTORY: Abdominal pain. COMPARISON: ABDOMEN/PELVIS W/ 06/11/2019 3:22 PM TECHNIQUE: Real-time sonographic vascular imaging was performed by the casting finisher through the mesenteric arterial system with a linear transducer utilizing color-flow, Doppler flow and spectral analysis. Multiple enrollment eligibility representative static images were saved for review. FINDINGS: Velocities within the celiac trunk are within normal limits ranging from 127-187 cm/s. Velocities within the SMA are within normal limits ranging from 113-178 cm/s. BEATRICE velocity is elevated at its origin measuring up to 352 cm/s. Velocities in the remainder of the BEATRICE range from 55-118 cm/s, within normal limits. Elevated hepatic artery velocities are noted measuring up to 274 cm/s. The splenic artery was not adequately visualized secondary to overlying bowel gas on this exam. No free fluid or mass lesions appreciated. Aorta: 65 cm/sec. Celiac [place]: Origin: 127 cm/sec. Proximal: 169 cm/sec. Mid: 187 cm/sec. Distal: 187 cm/sec. Hepatic Artery: 274 cm/sec. Splenic Artery: Not seen secondary to gas. Superior Mesenteric Artery Origin: 178 cm/sec. Proximal: 177 cm/sec. Mid: 154 cm/sec. Distal: 113 cm/sec. Inferior Mesenteric Artery: Origin: 352 cm/sec. Proximal: 118 cm/sec. Mid: 93 cm/sec. Distal: 55 cm/sec. IMPRESSION: 1. Elevated velocities in the hepatic artery and proximal BEATRICE suggesting hemodynamically significant stenoses in these locations. 2. Normal celiac and SMA velocities. 3. Splenic artery obscured by overlying bowel gas. RADIA
== END 2019-06-25 12:27 | disposition home or self-care (01) ==
LOC: DI 12:26
PROVIDERS: ATTEND Internal Medicine
DX: R10.84 Generalized abdominal pain (principal); R18.8 Other ascites
CPT/HCPCS: 93975

== ENCOUNTER 2019-08-01 17:07 | Emergency (ER) | payer MEDICARE, OTHER ==
[2019-08-01] MEDS ORDERED: SODIUM CHLORIDE 0.9% 1,000 ML IV ONE (17:53)
--- NOTE | 2019-08-01 17:54 | ED Physician Documentation ---
History of Present Illness - Stated complaint Stated Complaint: LOW BP,DIZZY - Chief complaint Chief Complaint: General - History obtained from History obtained from: Patient - History of Present Illness Timing: Other ( This is an 89-year-old gentleman who has a history of atrial fibrillation on warfarin. I saw him a few times last year for an iliopsoas hematoma that was causing a lot of pain, on those images he had an incidental pancreatic mass which in the interim was worked up and found to be pancreatic adenocarcinoma. He had an exploratory surgery, but it was found that the mass was too close to other vital structures to allow for a definitive Whipple procedure and as such he is being treated with chemotherapy. He had his first round of chemotherapy on Sunday, and since then is just feeling very weak and dizzy and is not eating well. He has lost quite a bit of weight. He denies fevers or pain. No diarrhea or vomiting.) Review of Systems Constitutional: reports: Fatigue, Weight Loss. denies: Fever, Chills Cardiac: denies: Chest pain / pressure, Palpitations Respiratory: denies: Dyspnea, Cough GI: denies: Abdominal Pain, Nausea, Vomiting, Diarrhea PD PAST MEDICAL HISTORY - Past Medical History Cardiovascular: High cholesterol, Valve disorder, Other Endocrine/Autoimmune: Type 2 diabetes Psych: Depression, Anxiety - Past Surgical History Past Surgical History: Yes Ortho: Hip replacement Cardiovascular: Other Derm: Skin cancer surgery - Present Medications Home Medications: Ambulatory Orders Medication Instructions Recorded Confirmed ALPRAZolam [Alprazolam] 2 mg PO DAILY 11/13/18 11/13/18 Escitalopram Oxalate [Lexapro] 20 mg PO DAILY 11/13/18 11/13/18 Fexofenadine HCl [Nikki Allergy] 180 mg PO DAILY 11/13/18 11/13/18 Fluticasone 44 Mcg [Flovent] 2 puffs PO DAILY 11/13/18 11/13/18 Fluticasone [Flonase] 2 sprays JUAN DAILY 11/13/18 11/13/18 Memantine HCl [Namenda] 10 mg PO DAILY 11/13/18 11/13/18 Simvastatin 10 mg PO DAILY 11/13/18 11/13/18 Warfarin [Coumadin] 5 - 7.5 mg PO DAILY 11/13/18 11/13/18 Zolpidem Tartrate [Ambien] 10 mg PO DAILY 11/13/18 11/13/18 metFORMIN [Glucophage] 1,000 mg PO DAILY 11/13/18 11/13/18 quiNINE [Qualaquin] 300 mg PO DAILY 11/13/18 11/13/18 Oxycodone HCl/Acetaminophen 1 - 2 each PO Q6H PRN #14 tablet 01/10/19 [Percocet 5-325 mg Tablet] Oxycodone HCl/Acetaminophen 1 each PO Q6HR PRN #15 tablet 05/15/19 [Percocet 10-325 mg Tablet] - Allergies Allergies/Adverse Reactions: Allergies Allergy/AdvReac Type Severity Reaction Status Date / Time Penicillins Allergy Unknown Verified 08/01/19 17:23 - Social History Does the pt smoke?: No Smoking Status: Never smoker Does the pt drink ETOH?: No Does the pt have substance abuse?: No - Immunizations Immunizations are current?: Yes - POLST Patient has POLST: No PD ED PE NORMAL - Vitals Vital signs reviewed: Yes - General General: Alert and oriented X 3, Other (He is cachectic, he has lost significant amount of weight since I saw him last.) - HEENT HEENT: PERRL, EOMI - Neck Neck: Supple, no meningeal sign, No bony TTP - Cardiac Cardiac: Other (Irregularly irregular without murmur) - Respiratory Respiratory: No respiratory distress, Clear bilaterally - Abdomen Abdomen: Soft, Non tender - Back Back: No CVA TTP, No spinal TTP - Derm Derm: Normal color, Warm and dry - Extremities Extremities: No edema, No calf tenderness / cord - Neuro Neuro: Alert and oriented X 3, Normal speech Results - Vitals Vitals: Vital Signs - 24 hr 08/01/19 08/01/19 08/01/19 17:18 17:53 19:52 Temperature 36.8 C Heart Rate 100 87 97 Respiratory 16 16 16 Rate Blood Pressure 125/54 L 128/62 129/63 O2 Saturation 100 100 98 Oxygen O2 Source Room air - EKG (time done) 1720 Rate: Rate (enter#) (94) Rhythm: NSR Marshall: Normal Intervals: Other (LAFB) QRS: Normal Ischemia: Normal ST segments Computer interpretation: Agree with computer - Labs Labs: Laboratory Tests 01/24/20 01/24/20 01/24/20 18:02 18:02 18:02 WBC 5.7 RBC 3.31 L Hgb 9.0 L Hct 29.4 L MCV 88.8 MCH 27.2 MCHC 30.6 L RDW 16.6 H Plt Count 130 MPV 10.2 Neut # (Auto) 4.9 Lymph # (Auto) 0.3 L [place] # (Auto) 0.2 Eos # (Auto) 0.2 Baso # (Auto) 0.0 Absolute Nucleated RBC 0.00 Nucleated RBC % 0.0 PT 59.4 H INR 5.8 H* Sodium 133 L Potassium 4.1 Chloride 101 Carbon Dioxide 23 Anion Gap 9.0 BUN 28 H Creatinine 1.0 Estimated GFR (MDRD) 70 L Glucose 97 Calcium 8.6 Total Bilirubin 1.2 H AST 19 ALT 14 Alkaline Phosphatase 88 Total Protein 5.9 L Albumin 3.4 Globulin 2.5 Albumin/Globulin Ratio 1.4 Lipase 38 PD MEDICAL DECISION MAKING - ED course ED course: 89-year-old gentleman presents with symptoms of dehydration undergoing chemotherapy. INR was high and he was administered a small dose of vitamin K and discussed this going forward. After IV fluids he felt much better. Departure - Departure Disposition: 01 Home, Self Care Clinical Impression: Supratherapeutic INR, Dehydration Pancreatic cancer Qualifiers: Pancreatic malignancy location: unspecified Qualified Code(s): C25.9 - Malignant neoplasm of pancreas, unspecified Condition: Good Instructions: ED Dehydration Comments: INR is high today at 5.8. Skip it till Sunday, then restart at half dose 2.5 mg a day pending a recheck early next week.
[2019-08-01 18:12] LABS: BASOPHILS % (AUTO) 0.5 %; EOSINOPHILS # (AUTO) 0.2 10^3/uL (0.0-0.7); EOSINOPHILS % (AUTO) 4.2 %; LYMPHOCYTES # (AUTO) 0.3 10^3/uL (1.5-3.5); LYMPHOCYTES % (AUTO) 5.1 %; MEAN CORPUSCULAR HEMOGLOBIN 27.2 pg (27.0-31.0); MEAN CORPUSCULAR HGB CONC 30.6 g/dL (32.0-36.0); MEAN CORPUSCULAR VOLUME 88.8 fL (80.0-94.0); MEAN PLATELET VOLUME 10.2 fL (7.4-11.4); MONOCYTES # (AUTO) 0.2 10^3/uL (0.0-1.0); NEUTROPHILS # (AUTO) 4.9 10^3/uL (1.5-6.6); NEUTROPHILS % (AUTO) 85.9 %; PLT - PLATELET COUNT 130 10^3/uL (130-450); RED BLOOD COUNT 3.31 10^6/uL (4.70-6.10); RED CELL DISTRIBUTION WIDTH 16.6 % (12.0-15.0); WHITE BLOOD COUNT 5.7 x10^3/uL (4.8-10.8)
[2019-08-01 18:18] LABS: PT - PROTHROMBIN TIME 59.4 secs (9.9-12.6)
[2019-08-01 18:29] LABS: INR 5.8 (0.8-1.2)
[2019-08-01 18:31] LABS: ALBUMIN 3.4 g/dL (3.2-5.5); ALBUMIN/GLOBULIN RATIO 1.4 (1.0-2.2); BILIRUBIN,TOTAL 1.2 mg/dL (0.2-1.0); CALCIUM 8.6 mg/dL (8.5-10.3); TOTAL PROTEIN 5.9 g/dL (6.7-8.2)
[2019-08-01] MEDS ORDERED: PHYTONADIONE 10 MG/ML AMP PO ONE (19:35)
[2019-08-01] MEDS ORDERED: CHERRY SYRUP 10 ML UDC PO ONE (19:35)
[2019-08-01 20:02] VITALS: BP 141/67
== END 2019-08-01 20:30 | disposition home or self-care (01) ==
LOC: ED 17:07
DX: E86.0 Dehydration (principal); R79.1 Abnormal coagulation profile; C25.9 Malignant neoplasm of pancreas, unspecified; E11.9 Type 2 diabetes mellitus without complications; Z79.84 Long term (current) use of oral hypoglycemic drugs; Z79.01 Long term (current) use of anticoagulants; Z79.899 Other long term (current) drug therapy
CPT/HCPCS: 36415; 80053; 83690; 85025; 85610; 93005; 96361; 96374; 99284; 99285; A9270

== ENCOUNTER 2019-08-22 12:20 | Emergency (ER) | payer MEDICARE, OTHER ==
[2019-08-22] MEDS ORDERED: SODIUM CHLORIDE 0.9% 1,000 ML IV ONE (12:28)
--- NOTE | 2019-08-22 12:45 | ED Physician Documentation ---
History of Present Illness - Stated complaint Stated Complaint: WEAKNESS - Chief complaint Chief Complaint: General - History obtained from History obtained from: Patient, Family - History of Present Illness Timing: Other (This is a very pleasant 89-year-old gentleman with history of atrial fibrillation on warfarin, also more recent diagnosis of pancreatic cancer undergoing chemotherapy for Corrie Mclean every other week. Last infusion was 10 days ago. He was quite constipated yesterday and took a laxative and then he had a large firm bowel movement, from his description I presume it was a fecal impaction and then has diarrhea ever since which is caused some reactive weakness. He says he is not short of breath but he says everybody else says he is short of breath. He also has a pinching pain that is occasional and needlelike to the sternal area that is only when he moves and he wonders if 1 of his port wires is dislodged. He denies any active chest pain now. He denies shortness of breath. No pedal edema or calf pain.) Review of Systems Ten Systems: 10 systems reviewed and negative Constitutional: denies: Fever, Chills Ears: reports: Reviewed and negative Nose: reports: Reviewed and negative Throat: reports: Reviewed and negative GI: reports: Diarrhea. denies: Abdominal Pain, Nausea, Vomiting, Hematemesis, Bloody / black stool PD PAST MEDICAL HISTORY - Past Medical History Cardiovascular: High cholesterol, Valve disorder, Other Respiratory: None Neuro: None Endocrine/Autoimmune: Type 2 diabetes GI: None : None HEENT: None Psych: Depression, Anxiety Musculoskeletal: None Derm: None - Past Surgical History Past Surgical History: Yes Ortho: Hip replacement Cardiovascular: Other Derm: Skin cancer surgery - Present Medications Home Medications: Ambulatory Orders Medication Instructions Recorded Confirmed ALPRAZolam [Alprazolam] 2 mg PO DAILY 11/13/18 11/13/18 Escitalopram Oxalate [Lexapro] 20 mg PO DAILY 11/13/18 11/13/18 Fexofenadine HCl [Nikki Allergy] 180 mg PO DAILY 11/13/18 11/13/18 Fluticasone 44 Mcg [Flovent] 2 puffs PO DAILY 11/13/18 11/13/18 Fluticasone [Flonase] 2 sprays JUAN DAILY 11/13/18 11/13/18 Memantine HCl [Namenda] 10 mg PO DAILY 11/13/18 11/13/18 Simvastatin 10 mg PO DAILY 11/13/18 11/13/18 Warfarin [Coumadin] 5 - 7.5 mg PO DAILY 11/13/18 11/13/18 Zolpidem Tartrate [Ambien] 10 mg PO DAILY 11/13/18 11/13/18 metFORMIN [Glucophage] 1,000 mg PO DAILY 11/13/18 11/13/18 quiNINE [Qualaquin] 300 mg PO DAILY 11/13/18 11/13/18 Oxycodone HCl/Acetaminophen 1 - 2 each PO Q6H PRN #14 tablet 01/10/19 [Percocet 5-325 mg Tablet] Oxycodone HCl/Acetaminophen 1 each PO Q6HR PRN #15 tablet 05/15/19 [Percocet 10-325 mg Tablet] Levofloxacin [Levaquin] 750 mg PO DAILY #6 tablet 08/22/19 - Allergies Allergies/Adverse Reactions: Allergies Allergy/AdvReac Type Severity Reaction Status Date / Time Penicillins Allergy Unknown Verified 08/01/19 17:23 - Social History Does the pt smoke?: No Smoking Status: Never smoker Does the pt drink ETOH?: No Does the pt have substance abuse?: No - Family History Family history: reports: Non contributory - Immunizations Immunizations are current?: Yes - POLST Patient has POLST: No PD ED PE NORMAL - Vitals Vital signs reviewed: Yes - General General: Alert and oriented X 3, No acute distress, Other (Cachectic) - HEENT HEENT: PERRL, EOMI - Neck Neck: Supple, no meningeal sign, No bony TTP - Cardiac Cardiac: Other (Slight tachycardia with loud S2) - Respiratory Respiratory: No respiratory distress, Clear bilaterally - Abdomen Abdomen: Non tender - Back Back: No CVA TTP, No spinal TTP - Derm Derm: Normal color, Warm and dry - Extremities Extremities: No edema, No calf tenderness / cord - Neuro Neuro: Alert and oriented X 3, Normal speech Results - Vitals Vitals: Vital Signs - 24 hr 08/22/19 08/22/19 08/22/19 12:29 13:13 15:35 Temperature 37.5 C 38.3 C H Heart Rate 103 H 95 106 H Respiratory 16 17 18 Rate Blood Pressure 126/47 L 128/52 L 134/64 H O2 Saturation 99 98 98 Oxygen O2 Source Room air - Labs Labs: Laboratory Tests 08/22/19 08/22/19 08/22/19 12:56 13:19 13:19 WBC 5.9 RBC 3.04 L Hgb 8.5 L Hct 27.0 L MCV 88.8 MCH 28.0 MCHC 31.5 L RDW 16.7 H Plt Count 135 MPV 10.0 Neut # (Auto) 4.9 Lymph # (Auto) 0.2 L [place] # (Auto) 0.7 Eos # (Auto) 0.0 Baso # (Auto) 0.0 Absolute Nucleated RBC 0.00 Nucleated RBC % 0.0 Whole Blood INR 4.0 H Sodium 135 Potassium 3.9 Chloride 100 L Carbon Dioxide 24 Anion Gap 11.0 BUN 26 H Creatinine 0.8 Estimated GFR (MDRD) 91 Glucose 192 H Calcium 8.8 Total Bilirubin 1.0 AST 17 ALT 12 Alkaline Phosphatase 76 Total Protein 6.0 L Albumin 2.8 L Globulin 3.2 Albumin/Globulin Ratio 0.9 L Lipase 53 H - Rads (name of study) 2 view chest x-ray Radiology: EMP read contemporaneously (PowerPort appropriately placed, sternotomy wires and aortic valve replacement. Likely artifactual sprague bilaterally is representing nipples.) PD MEDICAL DECISION MAKING - ED course ED course: This is an 89-year-old gentleman who is unfortunately dying of pancreatic cancer and presents with symptoms of dehydration. Also the chest pain. I presume the chest pain is related to her sternotomy wires from weight loss given the description. The port looks fine on x-ray. He was feeling better after IV fluids but developed some chills. Prior to discharge he was still somewhat tachycardic, use about 105. He also developed a fever of 38.3. Patient was reassessed, he had no new complaints but did admit to a very mild cough yesterday and the day before but not today. He did not have an elevated white blood cell counts and his labs were basically at his baseline. I recommended admission to the hospital at that point after blood cultures and antibiotics and urinalysis. After discussion and discussing goals of care he requests antibiotics and discharge. At this stage of the game that is not unreasonable. Departure - Departure Disposition: 01 Home, Self Care Clinical Impression: Dehydration, Supratherapeutic INR Pancreatic cancer Qualifiers: Pancreatic malignancy location: unspecified Qualified Code(s): C25.9 - Malignant neoplasm of pancreas, unspecified Condition: Good Record reviewed to determine appropriate education?: Yes Instructions: ED Dehydration Prescriptions: Levofloxacin [Levaquin] 750 mg PO DAILY #6 tablet Comments: As discussed, I think the reason for the chest pain is that your sternotomy wires are starting to poke you because you have lost so much weight. You can talk to your cancer doctor or primary care physician about setting up a TPN. You received 1 mg of vitamin K orally here for the INR of 1.0. As we discussed with your doctor, skip today's dose and then take 2.5 mg a day until your next recheck next week. For the fevers, we discussed further work-up including blood cultures, urinalysis, admission to the hospital. After a prolonged conversation you requested discharge which at this stage of the game is not unreasonable. We have given you a strong antibiotic Return anytime if you worsen.
--- NOTE | 2019-08-22 13:10 | XRAY Report ---
Reason: chest feeling, check port Procedure Date: 08/22/2019 Accession Number: [id number] / [id number] Procedure: XR - Chest 2 View X-Ray CPT Code: 63582 Final Report FULL RESULT: EXAM: CHEST RADIOGRAPHY 2 VIEWS EXAM DATE: 08/22/2019 12:52 PM. CLINICAL HISTORY: Chest pain. Check port. COMPARISON: None. TECHNIQUE: PA and lateral views. FINDINGS: Lungs/Pleura: Normal vasculature. 6 mm nodular density projected over the right lower chest, and faint 12 mm nodule over the lower lateral left chest.. Lungs are otherwise clear. No pleural fluid or pneumothorax. Mediastinum: Normal cardiac and mediastinal contours. Aortic valve prosthesis. Atherosclerosis of the aorta. A power port on the left, the port at the anterior left third rib, distal end of the catheter in the proximal superior vena cava. Bones: Multiple sternal wire sutures. No acute abnormality. Other: Right shoulder calcific tendinosis. IMPRESSION: Nodular opacity projected over the lower chest bilaterally, possibly artifactual. Further evaluation could be obtained initially with a PA chest done with nipple markers, and very slight oblique views. Status post sternotomy and aortic valve replacement. Power port present on the left, distal end of the catheter in the proximal superior vena cava. RADIA
[2019-08-22 13:30] LABS: BASOPHILS % (AUTO) 0.2 %; EOSINOPHILS % (AUTO) 0.3 %; HGB - HEMOGLOBIN 8.5 g/dL (14.0-18.0); LYMPHOCYTES # (AUTO) 0.2 10^3/uL (1.5-3.5); LYMPHOCYTES % (AUTO) 3.2 %; MEAN CORPUSCULAR HGB CONC 31.5 g/dL (32.0-36.0); MEAN CORPUSCULAR VOLUME 88.8 fL (80.0-94.0); MONOCYTES # (AUTO) 0.7 10^3/uL (0.0-1.0); MONOCYTES % (AUTO) 12.1 %; NEUTROPHILS # (AUTO) 4.9 10^3/uL (1.5-6.6); NEUTROPHILS % (AUTO) 83.7 %; PLT - PLATELET COUNT 135 10^3/uL (130-450); RED BLOOD COUNT 3.04 10^6/uL (4.70-6.10); RED CELL DISTRIBUTION WIDTH 16.7 % (12.0-15.0); WHITE BLOOD COUNT 5.9 x10^3/uL (4.8-10.8)
[2019-08-22] MEDS ORDERED: CHERRY SYRUP 10 ML UDC PO ONE (13:32)
[2019-08-22] MEDS ORDERED: LOPERAMIDE 2 MG CAPSULE PO STA (13:32)
[2019-08-22] MEDS ORDERED: PHYTONADIONE 10 MG/ML AMP PO ONE (13:32)
[2019-08-22 13:48] LABS: ALBUMIN 2.8 g/dL (3.2-5.5); ALBUMIN/GLOBULIN RATIO 0.9 (1.0-2.2); CALCIUM 8.8 mg/dL (8.5-10.3); CREATININE 0.8 mg/dL (0.6-1.2)
[2019-08-22] MEDS ORDERED: LACTATED RINGERS 1,000 ML IV STA (14:08)
[2019-08-22 15:36] VITALS: BP 134/64
[2019-08-22] MEDS ORDERED: levoFLOXacin 250 MG TABLET PO STA (15:51)
== END 2019-08-22 16:27 | disposition home or self-care (01) ==
LOC: ED 12:20
DX: E86.0 Dehydration (principal); R79.1 Abnormal coagulation profile; C25.9 Malignant neoplasm of pancreas, unspecified; E11.9 Type 2 diabetes mellitus without complications; Z79.84 Long term (current) use of oral hypoglycemic drugs; Z79.899 Other long term (current) drug therapy
CPT/HCPCS: 36415; 71046; 80053; 83690; 85025; 85610; 96361; 96374; 99284; 99285; A9270; J7120; 83605; 87040

== ENCOUNTER 2019-09-01 14:22 | Outpatient (CLI) | payer MEDICARE, OTHER | END 2019-09-01 14:23 | disposition critical access hospital (66) | LOC: EMS 14:22 | PROVIDERS: ATTEND Surgery | DX: R22.0 Localized swelling, mass and lump, head (principal); R53.1 Weakness; R42 Dizziness and giddiness; W19.XXXA Unspecified fall, initial encounter | CPT/HCPCS: A0425; A0429 ==

== ENCOUNTER 2019-09-01 15:04 | Observation (INO) | payer MEDICARE, OTHER ==
[2019-09-01] MEDS ORDERED: SODIUM CHLORIDE 0.9% 1,000 ML IV ONE ×2 (15:36→21:29)
[2019-09-01 16:06] LABS: BASOPHILS % (AUTO) 0.3 %; EOSINOPHILS # (AUTO) 0.1 10^3/uL (0.0-0.7); LYMPHOCYTES # (AUTO) 0.1 10^3/uL (1.5-3.5); LYMPHOCYTES % (AUTO) 4.7 %; MEAN CORPUSCULAR HEMOGLOBIN 28.2 pg (27.0-31.0); MEAN CORPUSCULAR VOLUME 90.8 fL (80.0-94.0); MEAN PLATELET VOLUME 9.4 fL (7.4-11.4); MONOCYTES # (AUTO) 0.2 10^3/uL (0.0-1.0); MONOCYTES % (AUTO) 7.8 %; NEUTROPHILS # (AUTO) 2.5 10^3/uL (1.5-6.6); NEUTROPHILS % (AUTO) 84.2 %; PLT - PLATELET COUNT 206 10^3/uL (130-450); RED BLOOD COUNT 2.06 10^6/uL (4.70-6.10); RED CELL DISTRIBUTION WIDTH 16.1 % (12.0-15.0)
[2019-09-01 16:09] LABS: HGB - HEMOGLOBIN 5.8 g/dL (14.0-18.0)
[2019-09-01 16:17] LABS: ALBUMIN 2.2 g/dL (3.2-5.5); ALBUMIN/GLOBULIN RATIO 0.8 (1.0-2.2); BILIRUBIN,TOTAL 0.7 mg/dL (0.2-1.0); CALCIUM 7.9 mg/dL (8.5-10.3); CREATININE 0.7 mg/dL (0.6-1.2); TOTAL PROTEIN 5.1 g/dL (6.7-8.2)
[2019-09-01 16:23] LABS: PT - PROTHROMBIN TIME 22.1 secs (9.9-12.6)
[2019-09-01 17:06] LABS: BILIRUBIN,URINE NEGATIVE (NEGATIVE); GLUCOSE, URINE (UA) NEGATIVE (NEGATIVE); KETONES,URINE (UA) NEGATIVE (NEGATIVE); LEUKOCYTE ESTERASE, URINE NEGATIVE (NEGATIVE); NITRITE,URINE NEGATIVE (NEGATIVE); OCCULT BLOOD,URINE NEGATIVE (NEGATIVE); PH,URINE 5.5 PH (5.0-7.5); PROTEIN,URINE NEGATIVE (NEGATIVE); UROBILINOGEN,URINE 0.2 (NORMAL) E.U./dL (NORMAL)
[2019-09-01 17:08] LABS: CLARITY,URINE CLOUDY (CLEAR)
[2019-09-01 17:25] LABS: BACTERIA,URINE None Seen /HPF (None Seen); RBC,URINE None Seen /HPF (0-5); SQUAMOUS EPITHELIAL CELL,UR NONE SEEN (<= Few)
--- NOTE | 2019-09-01 17:29 | ED Physician Documentation ---
History of Present Illness - Stated complaint Stated Complaint: WEAKNESS - Chief complaint Chief Complaint: General - History obtained from History obtained from: Patient - History of Present Illness Timing: Yesterday - Additonal information Additional information: Patient comes emergency department complaint of feeling weak and dizzy and falling yesterday. He states that he Is currently being treated for pancreatic cancer with chemotherapy and that he lives at home with his who has severe dementia. He states that he accidentally rolled off the bed and that his had to help him get back up in the bed. He states his back was hurting and he asked his to call EMS for him but she would not. Patient states that every time he tried to get up, he felt very dizzy. He denies any vomiting or diarrhea. No black stools or bright red blood per rectum. No blood in his urine. Patient denies any dysuria. No other complaints at this time. Review of Systems Ten Systems: 10 systems reviewed and negative Constitutional: reports: Fatigue, Weight Loss Eyes: reports: Reviewed and negative Ears: reports: Reviewed and negative Nose: reports: Reviewed and negative Throat: reports: Reviewed and negative Cardiac: reports: Reviewed and negative Respiratory: reports: Reviewed and negative GI: reports: Reviewed and negative : reports: Reviewed and negative Skin: reports: Reviewed and negative Musculoskeletal: reports: Reviewed and negative Neurologic: reports: Reviewed and negative Psychiatric: reports: Reviewed and negative Endocrine: reports: Reviewed and negative Immunocompromised: reports: Reviewed and negative PD PAST MEDICAL HISTORY - Past Medical History Cardiovascular: High cholesterol, Valve disorder, Other Respiratory: None Neuro: None Endocrine/Autoimmune: Type 2 diabetes GI: None : None HEENT: None Psych: Depression, Anxiety Musculoskeletal: None Derm: None - Past Surgical History Past Surgical History: Yes Ortho: Hip replacement Cardiovascular: Other Derm: Skin cancer surgery - Present Medications Home Medications: Ambulatory Orders Medication Instructions Recorded Confirmed ALPRAZolam [Alprazolam] 2 mg PO DAILY 11/13/18 11/13/18 Escitalopram Oxalate [Lexapro] 20 mg PO DAILY 11/13/18 11/13/18 Fexofenadine HCl [Nikki Allergy] 180 mg PO DAILY 11/13/18 11/13/18 Fluticasone 44 Mcg [Flovent] 2 puffs PO DAILY 11/13/18 11/13/18 Fluticasone [Flonase] 2 sprays JUAN DAILY 11/13/18 11/13/18 Memantine HCl [Namenda] 10 mg PO DAILY 11/13/18 11/13/18 Simvastatin 10 mg PO DAILY 11/13/18 11/13/18 Warfarin [Coumadin] 5 - 7.5 mg PO DAILY 11/13/18 11/13/18 Zolpidem Tartrate [Ambien] 10 mg PO DAILY 11/13/18 11/13/18 metFORMIN [Glucophage] 1,000 mg PO DAILY 11/13/18 11/13/18 quiNINE [Qualaquin] 300 mg PO DAILY 11/13/18 11/13/18 Oxycodone HCl/Acetaminophen 1 - 2 each PO Q6H PRN #14 tablet 01/10/19 [Percocet 5-325 mg Tablet] Oxycodone HCl/Acetaminophen 1 each PO Q6HR PRN #15 tablet 05/15/19 [Percocet 10-325 mg Tablet] Levofloxacin [Levaquin] 750 mg PO DAILY #6 tablet 08/22/19 - Allergies Allergies/Adverse Reactions: Allergies Allergy/AdvReac Type Severity Reaction Status Date / Time Penicillins Allergy Unknown Verified 09/01/19 15:29 - Social History Does the pt smoke?: No Smoking Status: Never smoker Does the pt drink ETOH?: No Does the pt have substance abuse?: No - Immunizations Immunizations are current?: Yes - POLST Patient has POLST: No PD ED PE NORMAL - Vitals Vital signs reviewed: Yes - General General: Alert and oriented X 3, No acute distress - HEENT HEENT: PERRL, EOMI, Other (Contusion with skin tear, posterior scalp.No active bleeding.) - Neck Neck: Supple, no meningeal sign, No bony TTP - Cardiac Cardiac: RRR, No murmur - Respiratory Respiratory: Clear bilaterally - Abdomen Abdomen: Soft, Non tender, Non distended - Derm Derm: Warm and dry - Extremities Extremities: No deformity, No tenderness to palpate, No edema - Neuro Neuro: Alert and oriented X 3, No motor deficit, No sensory deficit, Normal speech - Psych Psych: Normal mood, Normal affect Results - Vitals Vitals: Vital Signs - 24 hr 09/01/19 09/01/19 15:23 16:46 Temperature 36.7 C Heart Rate 85 62 Respiratory 16 16 Rate Blood Pressure 118/51 L 134/86 H O2 Saturation 100 100 Oxygen O2 Source Room air - Labs Labs: Laboratory Tests 09/01/19 09/01/19 09/01/19 15:58 15:58 15:58 WBC 3.0 L RBC 2.06 L Hgb 5.8 L* Hct 18.7 L* MCV 90.8 MCH 28.2 MCHC 31.0 L RDW 16.1 H Plt Count 206 MPV 9.4 Neut # (Auto) 2.5 Lymph # (Auto) 0.1 L [place] # (Auto) 0.2 Eos # (Auto) 0.1 Baso # (Auto) 0.0 Absolute Nucleated RBC 0.00 Nucleated RBC % 0.0 PT 22.1 H INR 2.0 H Sodium 134 L Potassium 4.3 Chloride 103 Carbon Dioxide 26 Anion Gap 5.0 L BUN 21 H Creatinine 0.7 Estimated GFR (MDRD) 106 Glucose 151 H Calcium 7.9 L Total Bilirubin 0.7 AST 39 ALT 25 Alkaline Phosphatase 78 Total Protein 5.1 L Albumin 2.2 L Globulin 2.9 Albumin/Globulin Ratio 0.8 L Lipase 48 Urine Color Urine Clarity Urine pH Ur Specific [place] Urine Protein Urine Glucose (UA) Urine Ketones Urine Occult Blood Urine Nitrite Urine Bilirubin Urine Urobilinogen Ur Leukocyte Esterase Urine RBC Urine WBC Ur Squamous Epith Cells Urine Bacteria Ur Microscopic Review Urine Culture Comments Blood Type Antibody Screen Crossmatch IS Only 09/01/19 09/01/19 16:33 16:39 WBC RBC Hgb Hct MCV MCH MCHC RDW Plt Count MPV Neut # (Auto) Lymph # (Auto) [place] # (Auto) Eos # (Auto) Baso # (Auto) Absolute Nucleated RBC Nucleated RBC % PT INR Sodium Potassium Chloride Carbon Dioxide Anion Gap BUN Creatinine Estimated GFR (MDRD) Glucose Calcium Total Bilirubin AST ALT Alkaline Phosphatase Total Protein Albumin Globulin Albumin/Globulin Ratio Lipase Urine Color YELLOW Urine Clarity CLOUDY Urine pH 5.5 Ur Specific [place] 1.025 Urine Protein NEGATIVE Urine Glucose (UA) NEGATIVE Urine Ketones NEGATIVE Urine Occult Blood NEGATIVE Urine Nitrite NEGATIVE Urine Bilirubin NEGATIVE Urine Urobilinogen 0.2 (NORMAL) Ur Leukocyte Esterase NEGATIVE Urine RBC None Seen Urine WBC 0-3 Ur Squamous Epith Cells NONE SEEN Urine Bacteria None Seen Ur Microscopic Review INDICATED Urine Culture Comments NOT INDICATED Blood Type A NEGATIVE Antibody Screen NEGATIVE Crossmatch IS Only See Detail Departure - Departure Disposition: 66 [facility] DC/Xfer Clinical Impression: Symptomatic anemia Condition: Serious
--- NOTE | 2019-09-01 18:16 | CT Report ---
Reason: head trauma Procedure Date: 09/01/2019 Accession Number: [id number] / [id number] Procedure: CT - HEAD WO CPT Code: Final Report FULL RESULT: EXAM: CT HEAD EXAM DATE: 09/01/2019 06:03 PM. CLINICAL HISTORY: Head trauma. COMPARISON: None. TECHNIQUE: Multiaxial CT images were obtained from the foramen magnum to the vertex. Reformats: Sagittal and coronal. IV contrast: None. In accordance with CT protocol optimization, one or more of the following dose reduction techniques were utilized for this exam: automated exposure control, adjustment of mA and/or KV based on patient size, or use of iterative reconstructive technique. FINDINGS: Parenchyma: Hypoattenuation and volume loss within the left inferior cerebellum, consistent with encephalomalacia. Possible smaller focal encephalomalacia in the inferior right cerebellum. No hemorrhage. Diffuse chronic microangiopathic white matter changes are evident. Extraaxial Spaces: Normal for age. No subdural or epidural collections identified. Ventricles: The ventricles and cortical sulci are enlarged, consistent with age-related tissue loss. Sinuses and orbits: Mucosal thickening and partial opacification of the ethmoid air cells. Bones: No evidence of fracture or calvarial defect. Other: None. IMPRESSION: 1. Generalized age-related cortical atrophic changes without evidence of acute intracranial abnormality. 2. 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 RADIA
[2019-09-01] MEDS ORDERED: SODIUM CHLORIDE FLUSH 0.9% 10 ML SYRINGE IVP PRN (18:24)
--- NOTE | 2019-09-01 18:28 | HISTORY & PHYSICAL EXAMINATION ---
Chief Complaint - Chief Complaint Chief Complaint: fall, anemia History of Present Illness - Admitted From Admitted From:: ED - History Obtained From Records Reviewed: yes History obtained from: chart review, patient Exam Limitations: AMS, mood - History of Present Illness HPI Comment/Other: Allan Menjivar is a very ill appearing 89-year old white male with a past medical history of hypertension, hyperlipidemia, CAD, atrial fibrillation, status post CABG with aortic valve replacement via mechanical valve on Coumadin, iron deficiency anemia, diabetes mellitus type 2, malignant neoplasm of the head of pancreas-on current chemotherapy with [facility]. The patient was brought in via EMS today since falling out of bed overnight landing flat on his back with injury to his posterior scalp and low back. The patient admits to taking sleeping pills, pain pills related to his chronic abdominal pain from the pancreatic cancer. He believes that he gets into such a deep sleep, that he must not have realized where the edge of the bed was, leading to his fall to the floor. He has no close family in the area, as his children live out of state, and says his has such bad dementia; there is no point in speaking to her. Imaging in the ED, head CT are pending. Labs showed an H/H of 5.8/18.7, WBC count of 3.0, sodium 134, potassium 4.3, BUN 21, glucose 151, protein 5.1, albumin 2.2, INR 2.0, with no other significant abnormalities. A urine sample showed no infection. The patient states that his 3rd chemo session at [facility] was on 08/12/2019. He was last seen in this ED on 08/22/2019 with the final conclusion being chest pain due to sternum wires from his prior valve replacement in 2003 since he has been losing weight. The patient claims he would wish to have all resuscitation measures if his heart were to stop, confirming a FULL code. The patient appears very cachectic, difficult to speak in full sentences, appears drowsy in his eyes from fatigue, is very chilly, and orientated. He agrees to a one night stay in the hospital to receive a blood transfusion and signed the consent in my presence. * During this H & P document, I reached out to Chary Peterson RN, desktop manager with [employer] to assist with an accurate history. Her direct # is and encourages any staff from [facility] to reach out to her. She states that the patient speaks with or at least text messages her every day. She states that Allan has very poor insight into his pancreatic cancer and has been given a poor prognosis by his Oncologist at [facility], Dr. Perdomo. This past week, the Palliative care provider reached out to the patient, but he was extremely resistant to the idea of this service or of Hospice care. She states that she has only been with the patient since the first week of July 2019, but the patient has become very close with her. For the past 2 weeks, Chary has seen a severe decline in the patient's nutritional status, energy, thinking, stamina, and has very little reserve. According to Chary, the patient moved to [facility] last September 2018 to retire. The patient lives independently with is severely demented in [place], [place]. Chary states that she was alerted of the patient falling early this morning, but could not convince his demented to call for help, and the patient could not make physically get to a phone to call for help. Chary's conclusion is that the home environment is no longer safe, and the couple would require a higher level of care. She discouraged us from reaching out to the patient's , as she would not be helpful. They have a mildred ghter in [place], but she suffers from mental illness, so she should also not be contacted. Chary states that the patient's son is his POA, but resides in [place]. His son is planning to visit on September 16, 2019, so Chary is trying to help the patient live at least until his son shows up. 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 ( has profound dementia), With caregiver(s) Social History Notes: According to Chary, the patient moved to [facility] last September 2018 to retire. The patient lives independently with is severely demented in [place], [place]. 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 He quit smoking in 1950, denies current alcohol or illicit drug use. He wishes to be a FULL code. - Substance History Use: Uses substance without health or social issues: NONE Abuse: Recurrent use of substance despite neg consequences: NONE Dependence: Experiences withdrawal or developed tolerances: NONE - POLST Patient has POLST: No POLST Status: Full Code Meds/Allgy - Home Medications Home Medications: Ambulatory Orders Medication Instructions Recorded Confirmed ALPRAZolam [Alprazolam] 2 mg PO DAILY 11/13/18 11/13/18 Escitalopram Oxalate [Lexapro] 20 mg PO DAILY 11/13/18 11/13/18 Fexofenadine HCl [Nikki Allergy] 180 mg PO DAILY 11/13/18 11/13/18 Fluticasone 44 Mcg [Flovent] 2 puffs PO DAILY 11/13/18 11/13/18 Fluticasone [Flonase] 2 sprays JUAN DAILY 11/13/18 11/13/18 Memantine HCl [Namenda] 10 mg PO DAILY 11/13/18 11/13/18 Simvastatin 10 mg PO DAILY 11/13/18 11/13/18 Warfarin [Coumadin] 5 - 7.5 mg PO DAILY 11/13/18 11/13/18 Zolpidem Tartrate [Ambien] 10 mg PO DAILY 11/13/18 11/13/18 metFORMIN [Glucophage] 1,000 mg PO DAILY 11/13/18 11/13/18 quiNINE [Qualaquin] 300 mg PO DAILY 11/13/18 11/13/18 Oxycodone HCl/Acetaminophen 1 - 2 each PO Q6H PRN #14 tablet 01/10/19 [Percocet 5-325 mg Tablet] Oxycodone HCl/Acetaminophen 1 each PO Q6HR PRN #15 tablet 05/15/19 [Percocet 10-325 mg Tablet] Levofloxacin [Levaquin] 750 mg PO DAILY #6 tablet 08/22/19 - Allergies Allergies/Adverse Reactions: Allergies Allergy/AdvReac Type Severity Reaction Status Date / Time Penicillins Allergy Unknown Verified 09/01/19 15:29 Review of Systems - Constitutional Constitutional: reports: Fatigue, Chills, Weakness, Poor appetite, Weight loss - Eyes Eyes: reports: Blurred vision, Vision loss - Ears, Nose & Throat Ears, Nose & Throat: reports: Vertigo, Postnasal drainage, Sore throat - Cardiovascular Cariovascular: reports: Lightheadedness, Decr. exercise tolerance - Respiratory Respiratory: reports: Cough, SOB with exertion - Gastrointestinal Gastrointestinal: reports: Abdominal pain, Nausea, Reflux/heartburn, Bloating, Poor appetite - Genitourinary Genitourinary: reports: Nocturia - Musculoskeletal Musculoskeletal: reports: Back pain, Limited range of motion, Joint swelling - Integumentary Integumentary: reports: Dryness, Pigment changes, Nail changes, Hair changes - Neurological Neurological: reports: General weakness, Focal weakness, Dizziness, Memory problems, Pre-existing deficit, Abnormal gait - Psychiatric Psychiatric: reports: Depression, Anxiety - Endocrine Endocrine: reports: Intolerance to cold - Hematologic/Lymphatic Hematologic/Lymphatic: reports: Anemia, Bleeding tendencies - All Other Systems All Other Systems: reports: Reviewed and negative Prior Level of Functionality: Independent at home, regular caregivers through [facility] Exam - Vital Signs Reviewed Vital Signs: Yes Vital Signs: Vital Signs x48h Temp Pulse Resp BP Pulse Ox 09/01/19 16:46 62 16 134/86 H 100 09/01/19 15:23 36.7 C 85 16 118/51 L 100 - Physical Exam General Appearance: positive: Alert, Moderate distress, Anxious Eyes Bilateral: positive: No lid inflammation, Other (bilateral eye redness) ENT: positive: Pharyngeal erythema, Dry mucous membranes Neck: positive: No JVD, Trachea midline, Stiff neck Respiratory: positive: Chest non-tender, No respiratory distress, Other (diminished with scattered crackles bilaterally) Cardiovascular: positive: Irregularly irregular, Tachycardia, Systolic murmur, Decreased pulse(s) Peripheral Pulses: positive: 1+ Abdomen: positive: Guarding, Abnml bowel sounds (hyperactive) Back: positive: Nml inspection Skin: positive: No rash, Warm, Dry, Other (pale, flakey) Extremities: positive: Pedal edema (trace to BLEs, ankles), Joint swelling Neurologic/Psychiatric: positive: CN's nml (2-12), Motor nml, Weakness, Sensory loss, Depressed mood/affect (anxiety) Reflexes: Bicep (R): 2+, Bicep (L): 2+ Conclusion/Plan - Problem List (1) Symptomatic anemia Conclusion/Plan: -AMS, pale, weak, short of breath, unable to ambulate, and extremely pale -H/H is 5.8/18.7 -No obvious bleeding source, patient denies bleeding at home, no black stools or vomiting blood -Likely a consequence of recent chemotherapy on 08/13/2019 -Blood consent signed, 2 units PRBCs, to be infused overnight -Re-check labs in the AM -Suspect side effect of recent chemo therapy Fall -Spoke to Chary (cyanide case hardener with [facility]) -At least 3 falls in the past 2 weeks, due to either orthostatic hypotension, or weakness -Injury to the back of the head, head CT is pending -PT to evaluate for possible SNF prior to D/C Dehydration -Very dry mucous membranes, poor PO intake -Chary ([facility] cyanide case hardener) notes the patient frequently becomes dehydrated due to poor PO intake -Transfuse blood, recheck labs Malignant neoplasm of head of pancreas -Unknown diagnosis date (year) -[facility], records pending -Patient, and Chary ([facility] cyanide case hardener) confirm 08/12/2019 was his last chemo -Primary Oncology, Dr. Reza Perdomo has suggested Palliative care -Prognosis is poor -Per [facility] records review, the patient was most recently treated with gemcitabine and Abraxane -Patient very resistant to Palliative or Hospice per Chary CHARLES (iron deficiency anemia) -[place] [place] for this -Was taking iron supplement, but not on current med list -Records from [facility] shows H/H from 08/13/2019 of -Consider repeat iron studies Anxiety with depression -Takes Lexapro at home, pending pharmacy review -Monitor mood, continue med in the AM Insomnia -Patient takes Ambien and gabapentin at HS, continued here Diabetes mellitus type 2, diet controlled -Previously on Metformin -Recently discontinued per [facility] records Hyperlipidemia -No recent use of a statin per med list from [facility] -History of 1 vessel CABG at the time of his aortic valve replacement in 2004 Prosthetic aortic valve -status post [facility] mechanical aortic valve replacement in 2003 -Continues on Warfarin with target INR 2.3-3.3 -[facility] [place] [facility]iology, last seen on 06/27/2019, Becky Mai MD -Pharmacy for continued Warfarin therapy -Routine labs, monitor for bleeding - Lab Results Lab results reviewed: Yes Maycol Bones: 09/02/19 02:31 09/01/19 15:58 Core Measures - Anticipated LOS I expect patient to be DC'd or transferred within 96 hours.: Yes - DVT/VTE - Prophylaxis VTE/DVT Device ordered at admit?: Yes VTE/DVT Prophylaxis med ordered at admit?: No Not Ordered - Medical Reason: Contraindicated - Stroke - Rehab Assessment Rehab services assessment to be ordered?: Yes - AMI - Statin at Admit Aspirin Prescribed on Admit: No Not Ordered - Medical Reason: Contraindicated
[2019-09-01] MEDS ORDERED: NON FORMULARY MED (Oxycodone Hcl/Acetaminophen [Percocet 10-325 Mg Tablet] 1 EACH) PO PRN (21:24)
[2019-09-01] MEDS ORDERED: diphenhydrAMINE 25 MG CAPSULE PO PRN (21:27)
[2019-09-01] MEDS ORDERED: ZOLPIDEM 5 MG TABLET PO SCH (21:31)
[2019-09-01] MEDS ORDERED: oxyCODONE 5 MG TABLET PO PRN (22:53)
[2019-09-01] MEDS: ACETAMINOPHEN 325 MG TABLET PO PRN (23:01)
[2019-09-02] MEDS: CARBOXYMETHYLCELLULOSE OPHTH DROPS EACHEYE PRN ×3 (00:01→10:27)
[2019-09-02] MEDS: SODIUM CHLORIDE FLUSH 0.9% 10 ML SYRINGE IVP SCH ×2 (01:32→08:05)
[2019-09-02 02:35] LABS: BASOPHILS % (AUTO) 0.6 %; EOSINOPHILS # (AUTO) 0.1 10^3/uL (0.0-0.7); EOSINOPHILS % (AUTO) 2.2 %; HGB - HEMOGLOBIN 8.3 g/dL (14.0-18.0); LYMPHOCYTES # (AUTO) 0.2 10^3/uL (1.5-3.5); LYMPHOCYTES % (AUTO) 6.1 %; MEAN CORPUSCULAR HEMOGLOBIN 29.6 pg (27.0-31.0); MEAN CORPUSCULAR HGB CONC 31.9 g/dL (32.0-36.0); MEAN CORPUSCULAR VOLUME 92.9 fL (80.0-94.0); MEAN PLATELET VOLUME 9.6 fL (7.4-11.4); MONOCYTES # (AUTO) 0.4 10^3/uL (0.0-1.0); MONOCYTES % (AUTO) 11.5 %; NEUTROPHILS # (AUTO) 2.5 10^3/uL (1.5-6.6); PLT - PLATELET COUNT 241 10^3/uL (130-450); RED CELL DISTRIBUTION WIDTH 15.4 % (12.0-15.0); WHITE BLOOD COUNT 3.1 x10^3/uL (4.8-10.8)
[2019-09-02] MEDS ORDERED: SODIUM CHLORIDE FLUSH 0.9% 10 ML SYRINGE IVP PRN (03:27)
[2019-09-02] MEDS ORDERED: MAGNESIUM CITRATE 296 ML BOTTLE PO ONE (08:42)
[2019-09-02] MEDS ORDERED: WARFARIN 5 MG TABLET PO SCH (09:00)
[2019-09-02] MEDS ORDERED: ZOLPIDEM TARTRATE 10 MG PO SCH (09:00)
[2019-09-02] MEDS ORDERED: ALPRAZolam 0.25 MG TABLET PO SCH (09:00)
[2019-09-02] MEDS ORDERED: polyethylene glycoL 3350 17 GM PACKET PO SCH (09:00)
[2019-09-02 10:20] LABS: BASOPHILS % (AUTO) 0.7 %; EOSINOPHILS % (AUTO) 0.7 %; HGB - HEMOGLOBIN 8.8 g/dL (14.0-18.0); LYMPHOCYTES # (AUTO) 0.1 10^3/uL (1.5-3.5); LYMPHOCYTES % (AUTO) 3.2 %; MEAN CORPUSCULAR HGB CONC 33.2 g/dL (32.0-36.0); MEAN CORPUSCULAR VOLUME 90.4 fL (80.0-94.0); MEAN PLATELET VOLUME 8.9 fL (7.4-11.4); MONOCYTES # (AUTO) 0.4 10^3/uL (0.0-1.0); MONOCYTES % (AUTO) 8.7 %; NEUTROPHILS # (AUTO) 3.8 10^3/uL (1.5-6.6); NEUTROPHILS % (AUTO) 86.5 %; PLT - PLATELET COUNT 206 10^3/uL (130-450); RED BLOOD COUNT 2.93 10^6/uL (4.70-6.10); RED CELL DISTRIBUTION WIDTH 15.5 % (12.0-15.0); WHITE BLOOD COUNT 4.4 x10^3/uL (4.8-10.8)
[2019-09-02 10:30] LABS: INR 2.1 (0.8-1.2); PT - PROTHROMBIN TIME 22.8 secs (9.9-12.6)
[2019-09-02 10:33] LABS: ALBUMIN 2.3 g/dL (3.2-5.5); ALBUMIN/GLOBULIN RATIO 0.8 (1.0-2.2); BILIRUBIN,TOTAL 1.3 mg/dL (0.2-1.0); CALCIUM 8.1 mg/dL (8.5-10.3); CREATININE 0.8 mg/dL (0.6-1.2); MAGNESIUM 1.9 mg/dL (1.7-2.8); TOTAL PROTEIN 5.3 g/dL (6.7-8.2)
--- NOTE | 2019-09-02 10:50 | Discharge Plan ---
Discharge Plan Problem Reviewed?: Yes Disposition: Home Health Service Condition: Good Prescriptions: RX: Ferrous Gluconate 240 mg PO DAILY #30 tablet RX: Magnesium Citrate [Citroma] 296 ml PO DAILY PRN #5 solution PRN Reason: Constipation Diet: Regular Activity Restrictions: No Restrictions Shower Restrictions: No Weight Bearing: Full Weight Health Concerns: Symptomatic anemia CHARLES (iron deficiency anemia) Falls Weakness Worsening vision Pancreatic cancer Plan of Treatment: Start taking an iron supplement, which has been sent to [facility] Physical therapy would be helpful to maintain your strength Prevent falls by eating nutritious foods, drinking plenty of fluids Follow up with the eye doctor Follow up with your Oncologist See your primary care provider by the end of this week since being in the hospital Care Goals: Continue Oncology plans Speak about Palliative care to allow for an improved quality of life on a daily basis Continue with [facility] health services, in home care givers Assessment: You were admitted to the hospital for dangerously low blood counts. You were given 2 units of blood, which greatly improved your blood counts. You should continue with an iron supplement, which has been sent to the pharmacy. For your constipation, you were given magnesium citrate, which you can continue at home. A CT scan of your head was negative for any brain bleeding. A physical therapy evaluation was completed, to ensure your current level of function will be safe at home. A social work consult was made to help out with more care at home if needed. You are medically stable since getting the blood products and are free to return home. No Smoking: If you smoke, Please STOP! Call for help. Follow-up with: Dar Lopez MD [Primary Care Provider] -
--- NOTE | 2019-09-02 11:01 | DISCHARGE SUMMARY ---
Discharge Summary Admit Date: 09/01/19 Discharge Date: 09/02/19 Discharging Provider: DUANE Del Valle Primary Care Provider: Dar Lopez Code Status: Attempt Resuscitation Condition at Discharge: Good Discharge Disposition: Home Health Service - DIAGNOSES Admission Diagnoses: Symptomatic anemia Fall; Dehydration Malignant neoplasm of head of pancreas [facility] current use of anticoagulants with INR goal of 2.5-3.5 H/O prosthetic aortic valve replacement CHARLES (iron deficiency anemia) Insomnia Anxiety with depression Diabetes mellitus, type 2 Low back pain Orthostatic hypotension Weight loss Slow transit constipation Photosensitivity Memory loss Discharge Diagnoses with Status of Each Condition: Symptomatic anemia-Resolved Fall-Chronic, stable Dehydration-Resolved Malignant neoplasm of head of pancreas-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, 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 with INR goal of 2.5-3.5-Chronic, stable H/O prosthetic aortic valve replacement-Chronic, stable CHARLES (iron deficiency anemia)-Chronic, stable Insomnia-Chronic, stable Anxiety with depression-Chronic, stable Diabetes mellitus, type 2-Chronic, stable Low back pain-Chronic, stable Orthostatic hypotension-Chronic, stable Weight loss-Chronic, stable Slow transit constipation-Chronic, stable Photosensitivity-Chronic, stable Memory loss-Chronic, stable - HPI History of Present Illness: Allan Menjivar is a very ill appearing 89-year old white male with a past medical history of hypertension, hyperlipidemia, CAD, atrial fibrillation, status post CABG with aortic valve replacement via mechanical valve on Coumadin, iron deficiency anemia, diabetes mellitus type 2, malignant neoplasm of the head of pancreas-on current chemotherapy with [facility]. The patient was brought in via EMS today since falling out of bed overnight landing flat on his back with injury to his posterior scalp and low back. The patient admits to taking sleeping pills, pain pills related to his chronic abdominal pain from the pancreatic cancer. He believes that he gets into such a deep sleep, that he must not have realized where the edge of the bed was, leading to his fall to the floor. He has no close family in the area, as his children live out of state, and says his has such bad dementia; there is no point in speaking to her. Imaging in the ED, head CT are pending. Labs showed an H/H of 5.8/18.7, WBC count of 3.0, sodium 134, potassium 4.3, BUN 21, glucose 151, protein 5.1, albumin 2.2, INR 2.0, with no other significant abnormalities. A urine sample showed no infection. The patient states that his 3rd chemo session at [facility] was on 08/12/2019. He was last seen in this ED on 08/22/2019 with the final conclusion being chest pain due to sternum wires from his prior valve replacement in 2003 since he has been losing weight. The patient claims he would wish to have all resuscitation measures if his heart were to stop, confirming a FULL code. The patient appears very cachectic, difficult to speak in full sentences, appears drowsy in his eyes from fatigue, is very chilly, and orientated. He agrees to a one night stay in the hospital to receive a blood transfusion and signed the consent in my presence. * During this H & P document, I reached out to Chary Peterson RN, forms analysis manager with [employer] to assist with an accurate history. Her direct # is and encourages any staff from [facility] to reach out to her. She states that the patient speaks with or at least text messages her every day. She states that Allan has very poor insight into his pancreatic cancer and has been given a poor prognosis by his Oncologist at [facility], Dr. Perdomo. This past week, the Palliative care provider reached out to the patient, but he was extremely resistant to the idea of this service or of Hospice care. She states that she has only been with the patient since the first week of July 2019, but the patient has become very close with her. For the past 2 weeks, Chary has seen a severe decline in the patient's nutritional status, energy, thinking, stamina, and has very little reserve. According to Chary, the patient moved to [facility] last September 2018 to retire. The patient lives independently with is severely demented in [place], [place]. Chary states that she was alerted of the patient falling early this morning, but could not convince his demented to call for help, and the patient could not make physically get to a phone to call for help. Chary's conclusion is that the home environment is no longer safe, and the couple would require a higher level of care. She discouraged us from reaching out to the patient's , as she would not be helpful. They have a daughter in [place], but she suffers from mental illness, so she should also not be contacted. Chary states that the patient's son is his POA, but resides in [place]. His son is planning to visit on September 16, 2019, so Chary is trying to help the patient live at least until his son shows up. - HOSPITAL COURSE Hospital Course: The patient was admitted to the hospital for dangerously low blood counts. He was given 2 units of blood, which greatly improved H/H. An iron supplement was sent to the pharmacy. For his constipation, he was given magnesium citrate, which can continue at home. A CT scan of the head was negative for any brain bleeding. A physical therapy evaluation was completed, to ensure his current level of function will be safe at home, which he passed. A social work consult was made to help out with more care at home if needed. The patient was medically stable since getting the blood products and returned home with his . - ALLERGIES Allergies/Adverse Reactions: Allergies Allergy/AdvReac Type Severity Reaction Status Date / Time Penicillins Allergy Unknown Verified 09/01/19 15:29 - MEDICATIONS Home Medications: Ambulatory Orders Medication Instructions Recorded Confirmed ALPRAZolam [Alprazolam] 0.5 mg PO QID 11/13/18 09/02/19 Zolpidem Tartrate [Ambien] 5 mg PO QPM PRN 11/13/18 09/02/19 quiNINE [Qualaquin] 200 - 300 mg PO DAILY 11/13/18 09/02/19 Ferrous Gluconate 240 mg PO DAILY #30 tablet 09/02/19 Lipase/Protease/Amylase [Creon Dr 1 cap PO QID 09/02/19 24,000 Units Capsule] Magnesium Citrate [Citroma] 296 ml PO DAILY PRN #5 solution 09/02/19 Warfarin Sodium 1.25 mg PO DAILY 09/02/19 09/02/19 oxyCODONE [Roxicodone] 5 - 10 mg PO QID PRN MDD not to 09/02/19 09/02/19 exceed 5 tabs/day - PHYSICAL EXAM AT DISCHARGE General Appearance: positive: Alert, Mild distress, Anxious Eyes Bilateral: positive: PERRL, Other (more eye erythema in the right eye) ENT: positive: Pharyngeal erythema, Dry mucous membranes, Other (dry scaley skin, flakey) Neck: positive: No JVD, Trachea midline, Stiff neck Respiratory: positive: Chest non-tender, Other (scattered crackles bilaterally) Cardiovascular: positive: No gallop, Tachycardia, Systolic murmur, Diastolic murmur, Decreased pulse(s) Abdomen: positive: Non-tender, Nml bowel sounds Back: positive: Nml inspection Skin: positive: No rash, Warm, Dry, Pallor (pale, poor skin condition) Extremities: positive: Non-tender, No pedal edema, Joint swelling Neurologic/Psychiatric: positive: Oriented x3, CN's nml (2-12), Weakness, Sen fabio loss, Depressed mood/affect (flat affect, short tempered) Reflexes: Bicep (R): 2+, Bicep (L): 2+ - LABS Result Diagrams: 09/02/19 10:15 09/02/19 10:15 - TIME SPENT Time Spent in Discharge (Minutes): 55
[2019-09-02] MEDS: ACETAMINOPHEN 325 MG TABLET PO PRN (11:13)
[2019-09-02] MEDS ORDERED: LIPASE/PROTEASE/AMYLASE CAPSULE PO SCH (12:00)
[2019-09-02] MEDS ORDERED: MULTIVITAMIN W/MINERALS TABLET PO SCH (12:00)
--- NOTE | 2019-09-02 13:05 | PHARMACY PROGRESS NOTE ---
- Best Possible Medication History Admit Date and Time: 09/01/19 1824 Processed by: Pharmacy Medication History completed: Yes Patient Interview: Completed Secondary Source(s): Physician records, Pharmacy records, Insurance records As the person ultimately responsible for medication therapy, providers are able to order a medication from an existing home medication list in [facility] via the "Reconcile Routine" prior to Confirmation of that medication by child support officer. Such practice is discouraged except when the physician, in their clinical judgment, deems that a medical need exists for a medication without regard to previous use.
[2019-09-02 14:14] VITALS: BP 127/84
[2019-09-02] MEDS ORDERED: SACCHAROMYCES BOULARDII 250 MG CAPSULE PO SCH (17:00)
[2019-09-02] MEDS ORDERED: GABAPENTIN 300 MG CAPSULE PO SCH (21:00)
== END 2019-09-02 14:30 | disposition home health service (06) ==
LOC: ED 15:04 → MS2 18:24
PROVIDERS: ADMIT Nurse Practitioner; ATTEND Nurse Practitioner
DX: D50.9 Iron deficiency anemia, unspecified (principal); E86.0 Dehydration; I95.1 Orthostatic hypotension; S09.90XA Unspecified injury of head, initial encounter; Y93.9 Activity, unspecified; Y92.003 Bedroom of unspecified non-institutional (private) residence as the place of occurrence of the external cause; L56.8 Other specified acute skin changes due to ultraviolet radiation; W06.XXXA Fall from bed, initial encounter; C25.9 Malignant neoplasm of pancreas, unspecified; G47.00 Insomnia, unspecified; G89.29 Other chronic pain; M54.5 Low back pain; F41.8 Other specified anxiety disorders; R63.4 Abnormal weight loss; Z68.1 Body mass index [BMI] 19.9 or less, adult; I48.91 Unspecified atrial fibrillation; R41.3 Other amnesia; E78.5 Hyperlipidemia, unspecified; K59.01 Slow transit constipation; I25.10 Atherosclerotic heart disease of native coronary artery without angina pectoris; J45.909 Unspecified asthma, uncomplicated; J32.9 Chronic sinusitis, unspecified; E11.42 Type 2 diabetes mellitus with diabetic polyneuropathy; N40.1 Benign prostatic hyperplasia with lower urinary tract symptoms; R35.1 Nocturia; G93.89 Other specified disorders of brain; H54.7 Unspecified visual loss; H91.90 Unspecified hearing loss, unspecified ear; M19.90 Unspecified osteoarthritis, unspecified site; Z91.81 History of falling; Z79.01 Long term (current) use of anticoagulants; Z79.899 Other long term (current) drug therapy; Z95.1 Presence of aortocoronary bypass graft; Z96.649 Presence of unspecified artificial hip joint; Z85.828 Personal history of other malignant neoplasm of skin; Z87.891 Personal history of nicotine dependence
CPT/HCPCS: 36415; 36430; 70450; 80053; 81001; 83690; 83735; 85025; 85610; 86850; 86900; 86901; 86920; 96360; 96361; 97161; 99284; A9270; G0378; P9016; 81003; 87086

== ENCOUNTER 2019-09-05 04:30 | Outpatient (CLI) | payer MEDICARE, OTHER | END 2019-09-05 04:31 | disposition EMS.NT | LOC: EMS 04:30 | PROVIDERS: ATTEND Surgery | DX: M54.9 Dorsalgia, unspecified (principal); R42 Dizziness and giddiness; R53.1 Weakness; W01.0XXA Fall on same level from slipping, tripping and stumbling without subsequent striking against object, initial encounter; Y92.009 Unspecified place in unspecified non-institutional (private) residence as the place of occurrence of the external cause ==

== ENCOUNTER 2019-09-08 16:11 | Emergency (ER) | payer MEDICARE, OTHER ==
[2019-09-08] MEDS ORDERED: SODIUM CHLORIDE 0.9% 1,000 ML IV ONE ×3 (16:40→16:49)
[2019-09-08] MEDS ORDERED: IOVERSOL 320 100 ML VIAL IVP ONE ×2 (16:46→17:49)
--- NOTE | 2019-09-08 16:50 | ED Physician Documentation ---
History of Present Illness - Stated complaint Stated Complaint: BACK PX - FELL OUT OF BED, DEHYDRATION - PCP REFER - Chief complaint Chief Complaint: General - History obtained from History obtained from: Patient, Caregiver - History of Present Illness Timing: Today Pain level max: 4 Pain level now: 3 - Additonal information Additional information: 89-year-old male presents to the emergency department after a fall today. He states he was getting out of bed when he slipped, fell landing on his back and hitting his head. He is on warfarin. He has pancreatic cancer and is feeling weak. Review of Systems Ten Systems: 10 systems reviewed and negative Constitutional: denies: Fever, Chills Ears: denies: Ear pain Nose: denies: Rhinorrhea / runny nose, Congestion Throat: denies: Sore throat Respiratory: denies: Cough GI: denies: Nausea, Vomiting : denies: Dysuria Skin: denies: Rash Musculoskeletal: reports: Neck pain, Back pain Neurologic: reports: Confused (more confused than usual), Headache, Head injury PD PAST MEDICAL HISTORY - Past Medical History Past Medical History: Yes Cardiovascular: Hypertension, High cholesterol, Coronary artery disease, Atrial fibrillation, Murmur, Arrhythmia, Valve disorder Respiratory: Asthma Neuro: Peripheral neuropathy Endocrine/Autoimmune: Type 2 diabetes GI: GERD DISTRESSER: None : Benign prostate hypertrophy, Nocturia HEENT: Chronic vision loss, Chronic sinusitis, Chronic hearing loss Psych: Depression, Anxiety Musculoskeletal: Osteoarthritis, Fatigue, Chronic back pain Derm: None - Past Surgical History Past Surgical History: Yes Ortho: Hip replacement Cardiovascular: CABG, Valve replacement HEENT: Cataracts Derm: Skin cancer surgery - Present Medications Home Medications: Ambulatory Orders Medication Instructions Recorded Confirmed ALPRAZolam [Alprazolam] 0.5 mg PO QID 11/13/18 09/02/19 Zolpidem Tartrate [Ambien] 5 mg PO QPM PRN 11/13/18 09/02/19 quiNINE [Qualaquin] 200 - 300 mg PO DAILY 11/13/18 09/02/19 Ferrous Gluconate 240 mg PO DAILY #30 tablet 09/02/19 Lipase/Protease/Amylase [Creon Dr 1 cap PO QID 09/02/19 24,000 Units Capsule] Magnesium Citrate [Citroma] 296 ml PO DAILY PRN #5 solution 09/02/19 Warfarin Sodium 1.25 mg PO DAILY 09/02/19 09/02/19 oxyCODONE [Roxicodone] 5 - 10 mg PO QID PRN MDD not to 09/02/19 09/02/19 exceed 5 tabs/day - Allergies Allergies/Adverse Reactions: Allergies Allergy/AdvReac Type Severity Reaction Status Date / Time Penicillins Allergy Unknown Verified 09/01/19 15:29 - Social History Does the pt smoke?: No Smoking Status: Never smoker Does the pt drink ETOH?: No Does the pt have substance abuse?: No - Immunizations Immunizations are current?: Yes - POLST Patient has POLST: No POLST Status: Full Code PD ED PE NORMAL - Vitals Vital signs reviewed: Yes - General General: No acute distress, Other (alert, sometimes slow to respond or has to be redirected) - HEENT HEENT: PERRL, Moist mucous membranes, Other (small occipital hematoma. no palpable fractures.) - Neck Neck: Supple, no meningeal sign - Cardiac Cardiac: RRR, No murmur - Respiratory Respiratory: Clear bilaterally - Abdomen Abdomen: Normal bowel sounds, Soft, Non tender, Non distended - Derm Derm: Warm and dry - Extremities Extremities: No deformity - Neuro Neuro: Alert and oriented X 3 - Psych Psych: Normal mood, Normal affect Results - Vitals Vitals: Vital Signs - 24 hr 09/08/19 09/08/19 16:23 18:30 Temperature 37.1 C Heart Rate 91 93 Respiratory 16 14 Rate Blood Pressure 120/49 L 140/68 H O2 Saturation 97 97 Oxygen O2 Source Room air - Labs Labs: Laboratory Tests 09/08/19 09/08/19 09/08/19 16:50 16:50 16:50 WBC 15.5 H RBC 3.85 L Hgb 11.0 L Hct 37.8 L MCV 98.2 H MCH 28.6 MCHC 29.1 L RDW 15.8 H Plt Count 243 MPV 10.2 Neut # (Auto) 13.7 H Lymph # (Auto) 0.4 L Woodruff # (Auto) 1.2 H Eos # (Auto) 0.1 Baso # (Auto) 0.1 Absolute Nucleated RBC 0.00 Nucleated RBC % 0.0 PT 25.4 H INR 2.3 H Sodium 132 L Potassium 3.9 Chloride 97 L Carbon Dioxide 25 Anion Gap 10.0 BUN 22 H Creatinine 0.8 Estimated GFR (MDRD) 91 Glucose 146 H Calcium 8.6 Total Bilirubin 0.8 AST 33 ALT 18 Alkaline Phosphatase 109 Total Protein 6.6 L Albumin 2.8 L Globulin 3.8 Albumin/Globulin Ratio 0.7 L Lipase 57 H Urine Color Urine Clarity Urine pH Ur Specific [place] Urine Protein Urine Glucose (UA) Urine Ketones Urine Occult Blood Urine Nitrite Urine Bilirubin Urine Urobilinogen Ur Leukocyte Esterase Urine RBC Urine WBC Ur Squamous Epith Cells Urine Bacteria Urine Mucus Ur Microscopic Review Urine Culture Comments Blood Type Antibody Screen 09/08/19 09/08/19 17:05 19:23 WBC RBC Hgb Hct MCV MCH MCHC RDW Plt Count MPV Neut # (Auto) Lymph # (Auto) Woodruff # (Auto) Eos # (Auto) Baso # (Auto) Absolute Nucleated RBC Nucleated RBC % PT INR Sodium Potassium Chloride Carbon Dioxide Anion Gap BUN Creatinine Estimated GFR (MDRD) Glucose Calcium Total Bilirubin AST ALT Alkaline Phosphatase Total Protein Albumin Globulin Albumin/Globulin Ratio Lipase Urine Color DARK YELLOW Urine Clarity CLOUDY Urine pH 6.0 Ur Specific [place] 1.015 Urine Protein TRACE Urine Glucose (UA) NEGATIVE Urine Ketones NEGATIVE Urine Occult Blood TRACE-INTA Urine Nitrite NEGATIVE Urine Bilirubin NEGATIVE Urine Urobilinogen 1 (NORMAL) Ur Leukocyte Esterase NEGATIVE Urine RBC 0-5 Urine WBC 0-3 Ur Squamous Epith Cells RARE Squamous Urine Bacteria Rare Urine Mucus Moderate Strands Ur Microscopic Review INDICATED Urine Culture Comments NOT INDICATED Blood Type A NEGATIVE Antibody Screen NEGATIVE - Rads (name of study) Head CT Radiology: Prelim report reviewed, EMP read contemporaneously, See rad report (No acute traumatic intracranial abnormality. ) Cervical spine CT Radiology: Prelim report reviewed, EMP read contemporaneously, See rad report (1. No cervical spine fracture . 2. Multilevel disk related degenerative changes resulting in foraminal stenosis as detailed above most significant at C4-C5 and C5-C6. 3. There is mild C7 on T1 anterolisthesis, likely degenerative. 4. There is an irregular left apical 1.6 x 1.3 cm nodular opacity. While this may represent scarring, features are concerning for malignancy. Comparison with previous chest CT if available would be helpful. If no prior chest CTs are available then consider PET CT versus 3 month follow-up chest CT for further characterization. ) Chest CT Radiology: Prelim report reviewed, EMP read contemporaneously, See rad report (1. Suspect an acute T12 compression fracture, minimal change in height loss compared to 06/11/2019. 2. Irregular nodular opacity in the left lung apex. There are no priors for comparison, but neoplastic process cannot be excluded. Consider comparison with any priors if available, or PET/CT. 3. Small bilateral pleural effusions and some groundglass attenuation in the lingula which is nonspecific. No pneumothoraces. ) Abdomen pelvis CT Radiology: Prelim report reviewed, EMP read contemporaneously, See rad report (1. Sigmoid colon diverticulitis with associated 7.5 x 4.6 x 9 cm diverticular abscess. 2. Slight interval increase in size of 2.2 cm uncinate process pancreatic mass. 3. Moderate ascites. 4. There is an apparent 2.2 x 1.4 cm hypodense lesion closely associated with segment 5 of the liver and the gallbladder. It is uncertain if this is intrahepatic. This may represent a metastatic focus. Ultrasound and/or MRI may be helpful for further characterization. 5. Splenomegaly. 6. Moderate ascites. 7. Small bilateral pleural effusions. ) PD MEDICAL DECISION MAKING - ED course Complexity details: reviewed old records, reviewed results, re-evaluated patient, considered differential, d/w patient, d/w consultant intern ED course: 89-year-old male presents the emergency department after several falls. No acute findings on head CT or cervical spine CT. He does appear to have likely malignancy in the left upper lung. He also has a T12 fracture, likely acute, minimal height loss. Stable. Neurologically intact. He also has sigmoid diverticulitis with an associated 7.5 x 4.6 x 9 cm diverticular abscess. He also has new ascites. We do not have the ability to drain this abscess here, he will need transfer. Discussed with Dr. Benitez, interventional radiology at [facility] who recommends transfer at 1999. Discussed the case with Dr. Pathak, hospitalist at [facility] who graciously accepts in transfer at 1999. COBRA forms completed. Pain well controlled. Given Flagyl and cefepime here. This document was made in part using voice recognition software. While efforts are made to proofread this document, sound alike and grammatical errors may occur. Departure - Departure Disposition: 02 Transfer Acute Care Hosp Clinical Impression: Sigmoid diverticulitis, Abscess of sigmoid colon due to diverticulitis, Ascites, Malignant neoplasm of head of pancreas T12 vertebral fracture Qualifiers: Encounter type: initial encounter Fracture type: closed Fracture morphology: unspecified fracture morphology Qualified Code(s): S22.089A - Unspecified fracture of T11-T12 vertebra, initial encounter for closed fracture Condition: Stable
[2019-09-08 16:52] LABS: BASOPHILS # (AUTO) 0.1 10^3/uL (0.0-0.1); BASOPHILS % (AUTO) 0.3 %; EOSINOPHILS # (AUTO) 0.1 10^3/uL (0.0-0.7); EOSINOPHILS % (AUTO) 0.4 %; LYMPHOCYTES # (AUTO) 0.4 10^3/uL (1.5-3.5); LYMPHOCYTES % (AUTO) 2.8 %; MEAN CORPUSCULAR HEMOGLOBIN 28.6 pg (27.0-31.0); MEAN CORPUSCULAR HGB CONC 29.1 g/dL (32.0-36.0); MEAN CORPUSCULAR VOLUME 98.2 fL (80.0-94.0); MEAN PLATELET VOLUME 10.2 fL (7.4-11.4); MONOCYTES # (AUTO) 1.2 10^3/uL (0.0-1.0); MONOCYTES % (AUTO) 7.4 %; NEUTROPHILS # (AUTO) 13.7 10^3/uL (1.5-6.6); NEUTROPHILS % (AUTO) 88.5 %; PLT - PLATELET COUNT 243 10^3/uL (130-450); RED BLOOD COUNT 3.85 10^6/uL (4.70-6.10); RED CELL DISTRIBUTION WIDTH 15.8 % (12.0-15.0); WHITE BLOOD COUNT 15.5 x10^3/uL (4.8-10.8)
[2019-09-08 17:01] LABS: INR 2.3 (0.8-1.2); PT - PROTHROMBIN TIME 25.4 secs (9.9-12.6)
[2019-09-08 17:07] LABS: ALBUMIN 2.8 g/dL (3.2-5.5); ALBUMIN/GLOBULIN RATIO 0.7 (1.0-2.2); BILIRUBIN,TOTAL 0.8 mg/dL (0.2-1.0); CALCIUM 8.6 mg/dL (8.5-10.3); CREATININE 0.8 mg/dL (0.6-1.2); TOTAL PROTEIN 6.6 g/dL (6.7-8.2)
--- NOTE | 2019-09-08 18:01 | CT Report ---
Reason: fall, head injury Procedure Date: 09/08/2019 Accession Number: [id number] / [id number] Procedure: CT - HEAD WO CPT Code: Final Report FULL RESULT: EXAM: CT HEAD EXAM DATE: 09/08/2019 05:37 PM. CLINICAL HISTORY: Fall, head injury. COMPARISON: HEAD W/O 09/01/2019 5:48 PM. TECHNIQUE: Multiaxial CT images were obtained from the foramen magnum to the vertex. Reformats: Sagittal and coronal. IV contrast: None. In accordance with CT protocol optimization, one or more of the following dose reduction techniques were utilized for this exam: automated exposure control, adjustment of mA and/or KV based on patient size, or use of iterative reconstructive technique. FINDINGS: Parenchyma: No intraparenchymal hemorrhage. No evidence of mass, midline shift, or CT findings of infarction. Easley-white differentiation is distinct. Extraaxial Spaces: Normal for age. No subdural or epidural collections identified. Ventricles: Normal in size and position. Sinuses and Orbits: Small air-fluid level in left maxillary sinus. Rest of the imaged paranasal sinuses, orbits, and mastoids show no significant abnormality. Bones: No evidence of fracture or calvarial defect. Other: None. IMPRESSION: No acute traumatic intracranial abnormality. RADIA
--- NOTE | 2019-09-08 18:06 | CT Report ---
Reason: fall, neck pain Procedure Date: 09/08/2019 Accession Number: [id number] / [id number] Procedure: CT - CERVICAL SPINE WO CPT Code: Final Report FULL RESULT: EXAM: CT CERVICAL SPINE WITHOUT CONTRAST DATE: 09/08/2019 05:37 PM. HISTORY: Fall, neck pain. COMPARISONS: HEAD W/O 09/01/2019 5:48 PM CHEST 2 VIEW 08/22/2019 12:41 PM. TECHNIQUE: Thin-section axial images were acquired of the cervical spine without contrast. Post-processing: Coronal and sagittal reformats. Other: None. In accordance with CT protocol optimization, one or more of the following dose reduction techniques were utilized for this exam: automated exposure control, adjustment of mA and/or KV based on patient size, or use of iterative reconstructive technique. FINDINGS: Alignment: There is 3 mm of C7 on T1 anterolisthesis. Otherwise normal cervical spine alignment. Bones: No fracture or bone lesion. Interspace Levels/Facets: C1-C2: Unremarkable. C2-C3: Unremarkable. C3-C4: Degenerative bulging disk osteophyte complex and facet joint arthropathy resulting in moderate bilateral neural foraminal stenosis. C4-C5: Degenerative bulging disk osteophyte complex and facet joint arthropathy resulting in moderate to severe left and mild right neural foraminal stenosis. C5-C6: Degenerative bulging disk osteophyte complex resulting in moderate bilateral neural foraminal stenosis. C6-C7: Degenerative bulging disk osteophyte complex resulting in mild bilateral neural foraminal stenosis. C7-T1: Unremarkable. Musculature: Normal. No fatty atrophy. Other: The paravertebral and prevertebral soft tissues are unremarkable. There is a 1.6 x 1.3 cm spiculated left apical nodule with surrounding groundglass attenuation. IMPRESSION: 1. No cervical spine fracture . 2. Multilevel disk related degenerative changes resulting in foraminal stenosis as detailed above most significant at C4-C5 and C5-C6. 3. There is mild C7 on T1 anterolisthesis, likely degenerative. 4. There is an irregular left apical 1.6 x 1.3 cm nodular opacity. While this may represent scarring, features are concerning for malignancy. Comparison with previous chest CT if available would be helpful. If no prior chest CTs are available then consider PET CT versus 3 month follow-up chest CT for further characterization. RADIA
--- NOTE | 2019-09-08 18:21 | CT Report ---
Reason: fall, back and abd pain Procedure Date: 09/08/2019 Accession Number: [id number] / [id number] Procedure: CT - Abdomen/Pelvis W CPT Code: Final Report FULL RESULT: EXAM: CT ABDOMEN AND PELVIS EXAM DATE: 09/08/2019 05:37 PM. CLINICAL HISTORY: Fall, back and abdominal pain. COMPARISONS: ABDOMEN/PELVIS W/ 06/11/2019 3:22 PM. TECHNIQUE: Routine helical CT imaging was performed through the abdomen and pelvis. IV contrast: 90 mL Optiray 320. Enteric contrast: No. Reconstructions: Coronal and sagittal. In accordance with CT protocol optimization, one or more of the following dose reduction techniques were utilized for this exam: automated exposure control, adjustment of mA and/or KV based on patient size, or use of iterative reconstructive technique. FINDINGS: Lung Bases: Stable 9 mm right lower lobe nodule. There are new small bilateral pleural effusions. Liver: There is a new 2.2 x 1.4 cm hypodense lesion closely associated with segment 5 of the liver and adjacent gallbladder. The remainder of the liver is unremarkable. Gallbladder/Bile Ducts: The gallbladder is contracted. There has been interval common bile duct stent placement with some pneumobilia. No significant bile duct dilatation. Spleen: The spleen measures 14.9 cm longitudinally. No focal splenic lesions. Pancreas: There is a 2.2 x 1.8 cm hypodense mass within the uncinate process of the pancreas, previously 1.9 x 1.7 cm. No evidence of acute pancreatitis or duct dilatation. Adrenal Glands: Normal. Kidneys: There are bilateral renal cysts. No mass or hydronephrosis. Peritoneal Cavity/Bowel: Moderate volume ascites. No bowel obstruction or pneumoperitoneum. There is sigmoid colon diverticulosis. The sigmoid colon appears thickened and there is surrounding inflammatory stranding as well as a new, rim-enhancing 7.5 x 4.6 x 9 cm perirectal and perisigmoid fluid collection concerning for abscess. No evidence of appendicitis. Pelvic Organs: The urinary bladder is partially obscured by bilateral hip prosthesis artifact. Vasculature: Atherosclerotic aorta and iliac arteries without evidence of aneurysm. Bones: Multilevel lumbar spine disk related degenerative changes and scoliosis. No acute or destructive bone lesion seen. Other: There is a residual, rim-enhancing 3.3 x 3.3 cm left iliopsoas muscle fluid collection corresponding to site of previous hematoma. IMPRESSION: 1. Sigmoid colon diverticulitis with associated 7.5 x 4.6 x 9 cm diverticular abscess. 2. Slight interval increase in size of 2.2 cm uncinate process pancreatic mass. 3. Moderate ascites. 4. There is an apparent 2.2 x 1.4 cm hypodense lesion closely associated with segment 5 of the liver and the gallbladder. It is uncertain if this is intrahepatic. This may represent a metastatic focus. Ultrasound and/or MRI may be helpful for further characterization. 5. Splenomegaly. 6. Moderate ascites. 7. Small bilateral pleural effusions. RADIA
--- NOTE | 2019-09-08 18:27 | CT Report ---
Reason: fall back and chest pain Procedure Date: 09/08/2019 Accession Number: [id number] / [id number] Procedure: CT - CHEST W CPT Code: Final Report FULL RESULT: EXAM: CT CHEST EXAM DATE: 09/08/2019 05:37 PM. CLINICAL HISTORY: Fall back and chest pain. COMPARISONS: CHEST 2 VIEW 08/22/2019 12:41 PM ABDOMEN/PELVIS W/ 06/11/2019 3:22 PM. TECHNIQUE: Routine helical CT imaging was performed through the chest. IV contrast: Opti 320, 90 cc. Reconstructions: Coronal and sagittal. In accordance with CT protocol optimization, one or more of the following dose reduction techniques were utilized for this exam: automated exposure control, adjustment of mA and/or KV based on patient size, or use of iterative reconstructive technique. FINDINGS: Lungs/Pleura: In the left apex there is an irregular opacity measuring 1.4 x 2.0 x 1.2 cm. Minor amount of scarring in the right apex. 1 cm nodule with some peripheral calcifications in the right lower lobe is unchanged compared to a CT of the abdomen from 06/11/2019. Some groundglass opacities in the lingula are new compared to June 2019. Bilateral lower lobe areas of atelectasis, predominantly dependently with small bilateral pleural effusions. No pneumothoraces. Mediastinum: Status post sternotomy and coronary artery bypass grafting. Heart size within normal limits. No pericardial effusion. Aortic valve replacement. Thoracic aorta is normal in caliber without aneurysm or dissection. No enlarged mediastinal lymph nodes. Bones: There is a new somewhat horizontal lucency beneath the superior endplate of the T12 vertebral body. The endplate has a slightly different morphology than on the prior exam, although the height loss is only minimally changed. There is some new buckling of the anterior cortex near the superior endplate as well. No other acute bony abnormality is evident. Visualized Abdomen: See separate report, CT abdomen and pelvis. Other: None. IMPRESSION: 1. Suspect an acute T12 compression fracture, minimal change in height loss compared to 06/11/2019. 2. Irregular nodular opacity in the left lung apex. There are no priors for comparison, but neoplastic process cannot be excluded. Consider comparison with any priors if available, or PET/CT. 3. Small bilateral pleural effusions and some groundglass attenuation in the lingula which is nonspecific. No pneumothoraces. RADIA
[2019-09-08] MEDS ORDERED: metroNIDAZOLE 500 MG/100 ML 500 MG/100 ML BAG IV ONE (19:18)
[2019-09-08] MEDS ORDERED: CEFEPIME 2 GM in SODIUM CHLORIDE 0.9% MINIBAG 100 ML IV STA (19:18)
[2019-09-08] MEDS ORDERED: HYDROmorphone 1 MG/ML SYRINGE IVP STA (19:20)
[2019-09-08 19:30] LABS: BILIRUBIN,URINE NEGATIVE (NEGATIVE); GLUCOSE, URINE (UA) NEGATIVE (NEGATIVE); KETONES,URINE (UA) NEGATIVE (NEGATIVE); LEUKOCYTE ESTERASE, URINE NEGATIVE (NEGATIVE); NITRITE,URINE NEGATIVE (NEGATIVE); OCCULT BLOOD,URINE TRACE-INTA (NEGATIVE); PROTEIN,URINE TRACE mg/dL (NEGATIVE); UROBILINOGEN,URINE 1 (NORMAL) E.U./dL (NORMAL)
[2019-09-08 19:31] LABS: CLARITY,URINE CLOUDY (CLEAR)
[2019-09-08 19:54] LABS: RBC,URINE 0-5 /HPF (0-5)
[2019-09-08 19:55] LABS: BACTERIA,URINE Rare /HPF (None Seen); MUCUS,URINE Moderate Strands; SQUAMOUS EPITHELIAL CELL,UR RARE Squamous (<= Few)
[2019-09-08 22:00] VITALS: BP 126/60
== END 2019-09-08 22:00 | disposition short-term general hospital (02) ==
LOC: ED 16:11
DX: K57.20 Diverticulitis of large intestine with perforation and abscess without bleeding (principal); R18.8 Other ascites; C25.0 Malignant neoplasm of head of pancreas; R91.8 Other nonspecific abnormal finding of lung field; R16.1 Splenomegaly, not elsewhere classified; J90 Pleural effusion, not elsewhere classified; S22.089A Unspecified fracture of T11-T12 vertebra, initial encounter for closed fracture; S00.03XA Contusion of scalp, initial encounter; W06.XXXA Fall from bed, initial encounter; I10 Essential (primary) hypertension; E11.42 Type 2 diabetes mellitus with diabetic polyneuropathy; Z79.01 Long term (current) use of anticoagulants
CPT/HCPCS: 36415; 70450; 71260; 72125; 74177; 80053; 81001; 83690; 85025; 85610; 86850; 86900; 86901; 96361; 96365; 99284; 99285; J1170; Q9967; 81003; 87086

== ENCOUNTER 2019-09-08 22:04 | Outpatient (CLI) | payer MEDICARE, OTHER | END 2019-09-08 22:05 | disposition short-term general hospital (02) | LOC: EMS 22:04 | PROVIDERS: ATTEND Surgery | DX: K57.20 Diverticulitis of large intestine with perforation and abscess without bleeding (principal) | CPT/HCPCS: A0425; A0428 ==

== ENCOUNTER 2019-09-28 18:58 | Outpatient (CLI) | payer MEDICARE, OTHER | END 2019-09-28 18:59 | disposition short-term general hospital (02) | LOC: EMS 18:58 | PROVIDERS: ATTEND Surgery | DX: R58 Hemorrhage, not elsewhere classified (principal) | CPT/HCPCS: A0425; A0429 ==